=== PATIENT | male | born 1935 | race Caucasian/White ===

== ENCOUNTER 2017-01-29 15:18 | Outpatient (CLI) | payer MEDICARE, OTHER | END 2017-01-29 15:19 | disposition home or self-care (01) | DX: R10.9 Unspecified abdominal pain (principal) ==

== ENCOUNTER 2017-02-14 11:00 | Outpatient (CLI) | payer MEDICARE, OTHER | END 2017-02-14 11:01 | disposition home or self-care (01) | DX: K76.0 Fatty (change of) liver, not elsewhere classified (principal) ==

== ENCOUNTER 2017-03-19 09:31 | Outpatient (CLI) | payer MEDICARE, OTHER ==
[2017-03-19 18:13] LABS: BASOPHILS # (AUTO) 0.1 10^3/uL (0.0-0.1); BASOPHILS % (AUTO) 0.9 %; EOSINOPHILS # (AUTO) 0.3 10^3/uL (0.0-0.7); EOSINOPHILS % (AUTO) 3.9 %; HCT - HEMATOCRIT 41.5 % (42.0-52.0); LYMPHOCYTES # (AUTO) 1.3 10^3/uL (1.5-3.5); LYMPHOCYTES % (AUTO) 18.8 %; MEAN CORPUSCULAR HEMOGLOBIN 34.5 pg (27.0-31.0); MEAN CORPUSCULAR HGB CONC 33.7 g/dL (32.0-36.0); MEAN CORPUSCULAR VOLUME 102.3 fL (80.0-94.0); MEAN PLATELET VOLUME 8.9 fL (7.4-11.4); MONOCYTES # (AUTO) 0.4 10^3/uL (0.0-1.0); MONOCYTES % (AUTO) 6.5 %; NEUTROPHILS # (AUTO) 4.8 10^3/uL (1.5-6.6); NEUTROPHILS % (AUTO) 69.9 %; NUCLEATED RED BLOOD CELLS AUTO 0.1 /100WBC; RED BLOOD COUNT 4.06 10^6/uL (4.70-6.10); UNCORRECTED WHITE BLOOD COUNT 6.8 x10^3/uL; WHITE BLOOD COUNT 6.8 x10^3/uL (4.8-10.8)
[2017-03-19 18:48] LABS: ALBUMIN/GLOBULIN RATIO 1.7 (1.0-2.2); BILIRUBIN,TOTAL 0.7 mg/dL (0.2-1.0); BUN - BLOOD UREA NITROGEN 33 mg/dL (6-20); CARBON DIOXIDE - CO2 23 mmol/L (21-32); CHLORIDE 107 mmol/L (101-111); CHOL/HDL RATIO 2.8 (<5.0); CHOLESTEROL 190 mg/dL; CREATININE 1.3 mg/dL (0.6-1.2); GFR - MDRD 53 (>89); GLUCOSE 157 mg/dL (70-100); HDL CHOLESTEROL 68 mg/dL; LDL/HDL RATIO 1.6 (<3.6); POTASSIUM 4.8 mmol/L (3.5-5.0); SODIUM 137 mmol/L (135-145); TRIGLYCERIDES 69 mg/dL; VLDL CHOLESTEROL 14 mg/dL
== END 2017-03-19 09:32 | disposition home or self-care (01) ==
LOC: LAB.S 09:31
PROVIDERS: ATTEND Family Medicine
DX: E78.5 Hyperlipidemia, unspecified (principal); N18.3 Chronic kidney disease, stage 3 (moderate)
CPT/HCPCS: 36415; 80053; 80061; 85025

== ENCOUNTER 2017-05-29 14:07 | Outpatient (CLI) | payer MEDICARE, OTHER ==
[2017-05-29 18:07] LABS: ALBUMIN/GLOBULIN RATIO 1.8 (1.0-2.2); BILIRUBIN,TOTAL 0.8 mg/dL (0.2-1.0); BUN - BLOOD UREA NITROGEN 28 mg/dL (6-20); CALCIUM 9.1 mg/dL (8.5-10.3); CARBON DIOXIDE - CO2 24 mmol/L (21-32); CHLORIDE 105 mmol/L (101-111); CHOL/HDL RATIO 2.6 (<5.0); CHOLESTEROL 186 mg/dL; CREATININE 1.3 mg/dL (0.6-1.2); GFR - MDRD 53 (>89); GLUCOSE 121 mg/dL (70-100); HDL CHOLESTEROL 71 mg/dL; LDL/HDL RATIO 1.3 (<3.6); POTASSIUM 4.4 mmol/L (3.5-5.0); SODIUM 137 mmol/L (135-145); TOTAL PROTEIN 6.9 g/dL (6.7-8.2); TRIGLYCERIDES 120 mg/dL; VLDL CHOLESTEROL 24 mg/dL
[2017-05-29 18:14] LABS: HEMOGLOBIN A1C 0.74 g/dL
== END 2017-05-29 14:08 | disposition home or self-care (01) ==
LOC: LAB.F 14:07
PROVIDERS: ATTEND Family Medicine
DX: E11.9 Type 2 diabetes mellitus without complications (principal); E78.5 Hyperlipidemia, unspecified
CPT/HCPCS: 36415; 80053; 80061; 83036

== ENCOUNTER 2017-05-31 08:00 | Outpatient (CLI) | payer MEDICARE, OTHER | END 2017-05-31 08:01 | disposition home or self-care (01) | LOC: LAB.R 08:00 | PROVIDERS: ATTEND Family Medicine | DX: Z01.818 Encounter for other preprocedural examination (principal) | CPT/HCPCS: 87640 ==

== ENCOUNTER 2017-06-25 10:45 | Outpatient (CLI) | payer MEDICARE, OTHER ==
[2017-06-25 11:12] LABS: BASOPHILS # (AUTO) 0.1 10^3/uL (0.0-0.1); BASOPHILS % (AUTO) 0.8 %; EOSINOPHILS # (AUTO) 0.3 10^3/uL (0.0-0.7); EOSINOPHILS % (AUTO) 3.1 %; HCT - HEMATOCRIT 40.2 % (42.0-52.0); HGB - HEMOGLOBIN 13.7 g/dL (14.0-18.0); LYMPHOCYTES # (AUTO) 1.4 10^3/uL (1.5-3.5); LYMPHOCYTES % (AUTO) 16.9 %; MEAN CORPUSCULAR HEMOGLOBIN 34.3 pg (27.0-31.0); MEAN CORPUSCULAR HGB CONC 34.2 g/dL (32.0-36.0); MEAN CORPUSCULAR VOLUME 100.5 fL (80.0-94.0); MEAN PLATELET VOLUME 8.5 fL (7.4-11.4); MONOCYTES # (AUTO) 0.6 10^3/uL (0.0-1.0); MONOCYTES % (AUTO) 7.3 %; NEUTROPHILS % (AUTO) 71.9 %; NUCLEATED RED BLOOD CELLS AUTO 0.1 /100WBC; RED CELL DISTRIBUTION WIDTH 15.2 % (12.0-15.0); UNCORRECTED WHITE BLOOD COUNT 8.4 x10^3/uL; WHITE BLOOD COUNT 8.4 x10^3/uL (4.8-10.8)
== END 2017-06-25 10:46 | disposition home or self-care (01) ==
LOC: LAB 10:45
PROVIDERS: ATTEND Orthopaedic Surgery
DX: M17.12 Unilateral primary osteoarthritis, left knee (principal)
CPT/HCPCS: 36415; 85025

== ENCOUNTER 2017-07-17 07:54 | Inpatient (IN) | payer MEDICARE, OTHER ==
[2017-07-17] MEDS ORDERED: LACTATED RINGERS 1,000 ML IV ONE (08:24)
[2017-07-17] MEDS ORDERED: ceFAZolin 2 GM/50 ML 2 GM/50 ML BAG IV ONE (09:48)
[2017-07-17] MEDS ORDERED: SCOPOLAMINE PATCH TOP ONE (09:48)
[2017-07-17] MEDS ORDERED: CELECOXIB 100 MG CAPSULE PO ONE ×2 (09:57→09:58)
[2017-07-17] MEDS ORDERED: KETOROLAC 15 MG/ML VIAL IM ONE (11:07)
[2017-07-17] MEDS ORDERED: ROPIVACAINE 0.5% PF 20 ML AMPULE SUBQ ONE (11:07)
[2017-07-17] MEDS ORDERED: MORPHINE PF 5 MG/10 ML AMP SUBQ ONE (11:08)
[2017-07-17] MEDS ORDERED: EPINEPHrine 1 MG/ML AMP IVP ONE (11:08)
[2017-07-17] MEDS ORDERED: BUPIVACAINE 0.5% PF 30 ML VIAL SUBQ ONE ×2 (11:09→12:10)
[2017-07-17] MEDS ORDERED: MORPHINE PF 5 MG/10 ML AMP EP ONE (11:10)
[2017-07-17] MEDS ORDERED: LIDOCAINE-MPF 2% 5 ML VIAL IM ONE (11:10)
[2017-07-17] MEDS ORDERED: fentaNYL 100 MCG/2 ML VIAL IVP ONE (11:10)
[2017-07-17] MEDS ORDERED: TRANEXAMIC ACID 1,000 MG/10 ML VIAL IV ONE (11:10)
[2017-07-17] MEDS ORDERED: METOCLOPRAMIDE 10 MG/2 ML VIAL IVP ONE (11:10)
[2017-07-17] MEDS ORDERED: PROPOFOL 200 MG/20 ML VIAL IVP ONE (11:10)
[2017-07-17] MEDS ORDERED: ONDANSETRON 4 MG/2 ML VIAL IVP ONE (11:10)
[2017-07-17] MEDS ORDERED: DEXAMETHASONE 4 MG/ML VIAL IVP ONE (11:10)
[2017-07-17] MEDS ORDERED: KETOROLAC 30 MG/ML VIAL IVP ONE (11:10)
[2017-07-17] MEDS ORDERED: ceFAZolin 2 GM/50 ML BAG IV ONE (11:10)
[2017-07-17] MEDS ORDERED: ACETAMINOPHEN 1,000 MG/100 ML 100 ML IV ONE (11:10)
--- NOTE | 2017-07-17 12:23 | OPERATIVE REPORT ---
Operative Report - General Admit Date: 07/17/17 Procedure Date: 07/17/17 Planned Procedure: Left TKA Pre-Op Diagnosis: Left Knee DJD Procedure Performed: Left Total knee arthroplasty Post Op Diagnosis: same - Procedure Note Primary Surgeon: zuleyma Anesthesia Technique: Combo spinal/epidural, General LMA Estimated Blood Loss (mL): 30 Drain/Tube Type: Hemovac Complications: none
[2017-07-17] MEDS ORDERED: PROCHLORPERAZINE 10 MG/2 ML VIAL IVP PRN (12:24)
[2017-07-17] MEDS ORDERED: ONDANSETRON 4 MG/2 ML VIAL IVP PRN (12:24)
[2017-07-17] MEDS ORDERED: SENNA 8.6 MG TABLET PO PRN (12:24)
[2017-07-17] MEDS ORDERED: SODIUM CHLORIDE FLUSH 0.9% 10 ML SYRINGE IVP PRN (12:24)
[2017-07-17] MEDS ORDERED: BISACODYL 10 MG SUPP PR PRN (12:24)
[2017-07-17] MEDS ORDERED: ACETAMINOPHEN 1,000 MG/100 ML 100 ML IV PRN (12:24)
[2017-07-17] MEDS: SODIUM CHLORIDE 0.45% 1,000 ML IV SCH (14:13)
[2017-07-17] MEDS: SODIUM CHLORIDE FLUSH 0.9% 10 ML SYRINGE IVP SCH ×2 (14:14→22:53)
[2017-07-17] MEDS ORDERED: FLU VACCINE TS 2017-2018 45 MCG/0.5 ML SYRINGE IM ONE (14:17)
--- NOTE | 2017-07-17 16:35 | OPERATIVE REPORT ---
DATE OF SURGERY: 07/17/2017 00:00:00 PREOPERATIVE DIAGNOSIS: Left knee severe osteoarthritis. POSTOPERATIVE DIAGNOSIS: Left knee severe osteoarthritis. PROCEDURE: Left total knee replacement arthroplasty. OPERATING SURGEON: Edilma Miller MD. ANESTHESIA: Spinal and sedation. INDICATIONS FOR SURGERY: The patient is an 81-year-old male with progressive severe osteoarthritis of his left knee who has failed nonoperative management and now desires total knee arthroplasty. FINDINGS AT SURGERY: The patient's knee showed a large effusion. The patient was found to have bone o n bone articulation beneath his patella and in his medial compartment with hypertrophic spurs. The pa tient's menisci remained intact. DESCRIPTION OF OPERATIVE PROCEDURE: The patient was taken to the operating room. He was given a spina l anesthetic and then placed in the supine position, with careful padding. The tourniquet was placed on his thigh. His knee and leg were sterilely prepped and draped in standard fashion. His knee was ap proached under tourniquet control with a curved medial incision in the parapatellar incision. His pat cherie was able to be everted and dislocated laterally and his knee flexed exposing intraarticular subs tance of the knee and allowing resection of osteophytes and resection of the ACL. A distal femoral ho le was made for insertion of the medullary guide for application of the distal femoral cutting block. This was applied in standard fashion and the cut made. The patient's femur sized to a size 9 and the distal 4 in 1 cutting block was applied and the sequential cuts made on the femur. The patient's tib ia was then exposed with retractors and the residual meniscus was removed, and the cutting block was applied and the proximal cut made. This sized to a size G tibial tray, which was applied, drilled and broached for stem and then trial reduction performed. Ultimately, a 13 mm medial congruent poly was the most satisfactory for stability and range of motion. The patella was prepared by resecting approx imately 9 mm of the patella, cutting down from 25 to 16 for reinsertion of a size 32 patellar compone nt. This was drilled for, prepared. Trial reduction was done of all components, which were accepted. The component trials were removed. The knee was flushed and thoroughly irrigated. Cement was prepared . The Persona knee was then inserted with cement starting with the size D tibial tray, followed by ce menting the 9 standard femur and the 32 diameter patella and finally inserting a trial poly of 13 mm size while the cement hardened and removing the excess cement. When this was accomplished and the may ent had hardened, the insert was placed, a 13 mm medial congruity poly. The knee was flushed, irrigat ed and closed with FiberWire and the medial retinaculum over a Hemovac drain. Vicryl closure in layer s of the subcutaneous tissue and Monocryl closure of skin. Sterile dressings were applied. The patien t was taken to the recovery room in stable condition. ESTIMATED BLOOD LOSS: 35 mL. COMPLICATIONS: None. SPONGE AND NEEDLE COUNTS: Correct. JOB #: [id number] EXT JOB #:[id number]
[2017-07-17] MEDS: ACETAMINOPHEN 325 MG TABLET PO PRN (17:02)
[2017-07-17] MEDS: ASPIRIN 325 MG TABLET PO SCH (17:02)
--- NOTE | 2017-07-17 17:11 | XRAY Report ---
TWO VIEW LEFT KNEE: 07/17/2017 CLINICAL INDICATION: Postop knee replacement. Frontal and lateral views of the left knee demonstrate internal knee replacement in place. A suprapa tellar drain is noted in place. Subcutaneous gas is present. IMPRESSION: EXPECTED POSTOPERATIVE APPEARANCE OF LEFT KNEE REPLACEMENT. JOB #: [id number] EXT JOB #:[id number]
[2017-07-17] MEDS: ceFAZolin 2 GM/50 ML 2 GM/50 ML BAG IV SCH (17:34)
[2017-07-17] MEDS: FAMOTIDINE 20 MG TABLET PO SCH (22:17)
[2017-07-17] MEDS: metFORMIN 500 MG TABLET PO SCH (22:18)
[2017-07-17] MEDS ORDERED: INSULIN ASPART 300 UNIT/3 ML PEN SUBQ SCH (22:41)
[2017-07-18] MEDS: SODIUM CHLORIDE 0.45% 1,000 ML IV SCH ×3 (00:42→21:26)
[2017-07-18] MEDS: oxyCOD/ACETAMIN 5 MG/325 MG TABLET PO PRN (00:57)
[2017-07-18 01:27] LABS: HEMOGLOBIN A1C 0.62 g/dL
[2017-07-18] MEDS: ceFAZolin 2 GM/50 ML 2 GM/50 ML BAG IV SCH (01:43)
[2017-07-18 05:10] LABS: HCT - HEMATOCRIT 32.7 % (42.0-52.0); HGB - HEMOGLOBIN 11.2 g/dL (14.0-18.0)
[2017-07-18 05:18] LABS: CREATININE 1.8 mg/dL (0.6-1.2); POTASSIUM 4.3 mmol/L (3.5-5.0)
[2017-07-18] MEDS: SODIUM CHLORIDE FLUSH 0.9% 10 ML SYRINGE IVP SCH ×3 (05:43→20:06)
--- NOTE | 2017-07-18 07:14 | PROVIDER PROGRESS NOTE ---
Subjective - General Admit Date: 07/17/17 Procedure Date: 07/17/17 Post Op Days: 1 Procedure Performed: Left Total Knee Arthroplasty - Review of Systems Wound/Incisions: positive: Dressing dry and intact General: positive: No symptoms Cardiovascular: positive: No symptoms Musculoskeletal: positive: Joint pain Objective - Patient Data Reviewed Vital Signs: Yes Vital Signs: Vital Signs x48h Temp Pulse Resp BP Pulse Ox 07/18/17 04:35 36.6 C 58 L 18 117/61 93 07/17/17 23:51 36.5 C 60 18 130/72 96 Weight: Weight 07/16/17 07/17/17 07/18/17 23:59 23:59 23:59 Weight (kg) 100.4 kg Intake & Output: Intake and Output Totals x24h 07/16/17 07/17/17 07/18/17 23:59 23:59 23:59 Intake Total 558 1100 Output Total 500 240 Balance 58 860 - Lab Results Lab Results: 07/18/17 04:28 07/18/17 04:28 Other Lab Results: Lab Results x24hrs 07/18/17 07/18/17 07/18/17 Range/Units 04:28 04:28 04:28 Hgb 11.2 L (14.0-18.0) g/dL Hct 32.7 L (42.0-52.0) % Sodium 133 L (135-145) mmol/L Potassium 4.3 (3.5-5.0) mmol/L Chloride 105 (101-111) mmol/L Carbon Dioxide 20 L (21-32) mmol/L Anion Gap 8.0 (6-13) BUN 36 H (6-20) mg/dL Creatinine 1.8 H (0.6-1.2) mg/dL Estimated GFR (MDRD) 36 L (>89) Glucose 120 H (70-100) mg/dL POC Whole Bld Glucose 121 H (70 - 100) mg/dL Glycated Hemoglobin (4.6-6.2) % Estim Average Glucose (70-100) Calcium 8.0 L (8.5-10.3) mg/dL 07/18/17 07/17/17 07/17/17 Range/Units 00:18 22:49 22:28 Hgb (14.0-18.0) g/dL Hct (42.0-52.0) % Sodium (135-145) mmol/L Potassium (3.5-5.0) mmol/L Chloride (101-111) mmol/L Carbon Dioxide (21-32) mmol/L Anion Gap (6-13) BUN (6-20) mg/dL Creatinine (0.6-1.2) mg/dL Estimated GFR (MDRD) (>89) Glucose (70-100) mg/dL POC Whole Bld Glucose 311 H 370 H (70 - 100) mg/dL Glycated Hemoglobin 6.7 H (4.6-6.2) % Estim Average Glucose 146 H (70-100) Calcium (8.5-10.3) mg/dL 07/17/17 07/17/17 Range/Units 12:28 08:23 Hgb (14.0-18.0) g/dL Hct (42.0-52.0) % Sodium (135-145) mmol/L Potassium (3.5-5.0) mmol/L Chloride (101-111) mmol/L Carbon Dioxide (21-32) mmol/L Anion Gap (6-13) BUN (6-20) mg/dL Creatinine (0.6-1.2) mg/dL Estimated GFR (MDRD) (>89) Glucose (70-100) mg/dL POC Whole Bld Glucose 190 H 212 H (70 - 100) mg/dL Glycated Hemoglobin (4.6-6.2) % Estim Average Glucose (70-100) Calcium (8.5-10.3) mg/dL - Imaging Results Radiology Imaging: positive: EMP read indepedently - Current Medications Current Medications: Current Medications Generic Name Dose Route Start Last Admin Trade Name Freq PRN Reason Stop Dose Admin Acetaminophen 650 - 975 mg 07/17/17 12:24 07/17/17 17:02 Tylenol PO 650 mg Q4HR PRN Administration PAIN Aspirin 325 mg 07/17/17 17:00 07/17/17 17:02 Cameron PO 325 mg BIDWM VINCE Administration Famotidine 20 mg 07/17/17 21:00 07/17/17 22:17 Pepcid PO 20 mg BID VINCE Administration Sodium Chloride 1,000 mls @ 100 mls/hr 07/17/17 13:00 07/18/17 00:42 Normal Saline 0.45% IV 100 mls/hr .Q10H VINCE Administration Metformin HCl 500 mg 07/17/17 21:00 07/17/17 22:18 Glucophage PO 500 mg BID VINCE Administration Oxycodone/Acetaminophen 1 tab 07/17/17 12:24 07/18/17 00:57 Percocet 5 Mg/325 Mg PO 1 tab Q4HR PRN Administration PAIN Sodium Chloride 10 ml 07/17/17 14:00 07/18/17 05:43 Normal Saline Flush 0.9% IVP Not Given Q8HR VINCE - Physical Exam Wound/Incisions: positive: Dressing dry and intact General Appearance: positive: No acute distress Skin: positive: No rash Extremities: positive: Joint swelling Neurologic/Psychiatric: positive: Motor nml, Sensation nml, Mood/affect nml Impression/Plan - Problem List Problem List: POD #1 Pt is doing better and pain is under good control PT has begun today. PLan to cont. with care and gear up for d/c to home Will need better diabetic care.
[2017-07-18] MEDS: ASPIRIN 325 MG TABLET PO SCH ×2 (09:00→17:09)
[2017-07-18] MEDS: INSULIN ASPART 300 UNIT/3 ML PEN SUBQ SCH ×4 (09:00→20:09)
[2017-07-18] MEDS: LOSARTAN 50 MG TABLET PO SCH (09:00)
[2017-07-18] MEDS: amLODIPine 5 MG TABLET PO SCH (09:00)
[2017-07-18] MEDS: ALLOPURINOL 100 MG TABLET PO SCH (09:00)
[2017-07-18] MEDS: FAMOTIDINE 20 MG TABLET PO SCH ×2 (09:01→20:06)
[2017-07-18] MEDS: METOPROLOL SUCCINATE 50 MG TABLET PO SCH (09:01)
[2017-07-18] MEDS: metFORMIN 500 MG TABLET PO SCH ×2 (10:10→20:33)
[2017-07-18] MEDS: ACETAMINOPHEN 325 MG TABLET PO PRN ×3 (10:40→20:06)
[2017-07-18] MEDS ORDERED: metFORMIN 500 MG TABLET ONE (20:27)
[2017-07-19] MEDS: ACETAMINOPHEN 325 MG TABLET PO PRN (04:10)
[2017-07-19] MEDS: SODIUM CHLORIDE FLUSH 0.9% 10 ML SYRINGE IVP SCH ×3 (06:25→20:51)
--- NOTE | 2017-07-19 07:21 | PROVIDER PROGRESS NOTE ---
Subjective - General Admit Date: 07/17/17 Procedure Date: 07/17/17 Post Op Days: 2 Procedure Performed: Left Total Knee Arthroplasty - Review of Systems Wound/Incisions: positive: Dressing dry and intact General: positive: No symptoms Cardiovascular: positive: No symptoms Musculoskeletal: positive: Joint pain Objective - Patient Data Reviewed Vital Signs: Yes Vital Signs: Vital Signs x48h Temp Pulse Resp BP Pulse Ox 07/19/17 04:01 36.9 C 66 18 150/62 H 96 07/19/17 00:05 36.3 C L 66 18 133/65 H 98 Weight: Weight 07/17/17 07/18/17 07/19/17 23:59 23:59 23:59 Weight (kg) 100.4 kg Intake & Output: Intake and Output Totals x24h 07/17/17 07/18/17 07/19/17 23:59 23:59 23:59 Intake Total 558 4450 1073.333 Output Total 500 530 300 Balance 58 3920 773.333 - Lab Results Lab Results: 07/18/17 04:28 07/18/17 04:28 Other Lab Results: Lab Results x24hrs 07/18/17 07/18/17 07/18/17 Range/Units 19:56 16:25 11:15 POC Whole Bld Glucose 197 H 114 H 216 H (70 - 100) mg/dL 07/18/17 Range/Units 07:31 POC Whole Bld Glucose 128 H (70 - 100) mg/dL - Current Medications Current Medications: Current Medications Generic Name Dose Route Start Last Admin Trade Name Freq PRN Reason Stop Dose Admin Acetaminophen 650 - 975 mg 07/17/17 12:24 07/19/17 04:10 Tylenol PO 650 mg Q4HR PRN Administration PAIN Allopurinol 300 mg 07/18/17 09:00 07/18/17 09:00 Zyloprim PO 300 mg DAILY VINCE Administration Amlodipine Besylate 10 mg 07/18/17 09:00 07/18/17 09:00 Norvasc PO 10 mg DAILY VINCE Administration Aspirin 325 mg 07/17/17 17:00 07/18/17 17:09 Cameron PO 325 mg BIDWM VINCE Administration Famotidine 20 mg 07/17/17 21:00 07/18/17 20:06 Pepcid PO 20 mg BID VINCE Administration Sodium Chloride 1,000 mls @ 100 mls/hr 07/17/17 13:00 07/19/17 07:10 Normal Saline 0.45% IV 100 mls/hr .Q10H VINCE Infusion Insulin Aspart 3 - 11 unit 07/18/17 08:00 07/18/17 20:09 Novolog SUBQ 5 unit 0800,1200,1700,2100 VINCE Administration Protocol Losartan Potassium 100 mg 07/18/17 09:00 07/18/17 09:00 Cozaar PO 100 mg DAILY VINCE Administration Metformin HCl 500 mg 07/17/17 21:00 07/18/17 20:33 Glucophage PO 500 mg BID VINCE Administration Metoprolol Succinate 50 mg 07/18/17 09:00 07/18/17 09:01 Toprol Xl PO 50 mg DAILY VINCE Administration Oxycodone/Acetaminophen 1 tab 07/17/17 12:24 07/18/17 00:57 Percocet 5 Mg/325 Mg PO 1 tab Q4HR PRN Administration PAIN Sodium Chloride 10 ml 07/17/17 14:00 07/19/17 06:25 Normal Saline Flush 0.9% IVP 10 ml Q8HR VINCE Administration
[2017-07-19] MEDS: SODIUM CHLORIDE 0.45% 1,000 ML IV SCH ×2 (08:12→16:46)
[2017-07-19] MEDS: INSULIN ASPART 300 UNIT/3 ML PEN SUBQ SCH ×4 (09:50→20:50)
[2017-07-19] MEDS: amLODIPine 5 MG TABLET PO SCH (09:54)
[2017-07-19] MEDS: oxyCOD/ACETAMIN 5 MG/325 MG TABLET PO PRN ×2 (09:54→14:47)
[2017-07-19] MEDS: LOSARTAN 50 MG TABLET PO SCH (09:54)
[2017-07-19] MEDS: FAMOTIDINE 20 MG TABLET PO SCH ×2 (09:54→20:49)
[2017-07-19] MEDS: METOPROLOL SUCCINATE 50 MG TABLET PO SCH (09:54)
[2017-07-19] MEDS: ALLOPURINOL 100 MG TABLET PO SCH (09:54)
[2017-07-19] MEDS: ASPIRIN 325 MG TABLET PO SCH ×2 (09:55→18:14)
[2017-07-19] MEDS: metFORMIN 500 MG TABLET PO SCH ×2 (10:54→20:50)
[2017-07-20 05:34] LABS: BASOPHILS % (AUTO) 0.4 %; EOSINOPHILS # (AUTO) 0.2 10^3/uL (0.0-0.7); HCT - HEMATOCRIT 31.7 % (42.0-52.0); HGB - HEMOGLOBIN 10.9 g/dL (14.0-18.0); LYMPHOCYTES # (AUTO) 0.8 10^3/uL (1.5-3.5); LYMPHOCYTES % (AUTO) 8.6 %; MEAN CORPUSCULAR HEMOGLOBIN 35.1 pg (27.0-31.0); MEAN CORPUSCULAR HGB CONC 34.4 g/dL (32.0-36.0); MEAN CORPUSCULAR VOLUME 102.1 fL (80.0-94.0); MEAN PLATELET VOLUME 9.1 fL (7.4-11.4); MONOCYTES # (AUTO) 0.8 10^3/uL (0.0-1.0); MONOCYTES % (AUTO) 8.3 %; NEUTROPHILS # (AUTO) 7.8 10^3/uL (1.5-6.6); NEUTROPHILS % (AUTO) 80.7 %; RED BLOOD COUNT 3.11 10^6/uL (4.70-6.10); RED CELL DISTRIBUTION WIDTH 15.2 % (12.0-15.0); UNCORRECTED WHITE BLOOD COUNT 9.7 x10^3/uL; WHITE BLOOD COUNT 9.7 x10^3/uL (4.8-10.8)
[2017-07-20 05:43] LABS: ALBUMIN/GLOBULIN RATIO 1.3 (1.0-2.2); BILIRUBIN,TOTAL 0.9 mg/dL (0.2-1.0); BUN - BLOOD UREA NITROGEN 25 mg/dL (6-20); CALCIUM 8.5 mg/dL (8.5-10.3); CARBON DIOXIDE - CO2 22 mmol/L (21-32); CHLORIDE 103 mmol/L (101-111); CREATININE 1.4 mg/dL (0.6-1.2); GFR - MDRD 48 (>89); GLUCOSE 161 mg/dL (70-100); POTASSIUM 4.3 mmol/L (3.5-5.0); SODIUM 134 mmol/L (135-145); TOTAL PROTEIN 6.2 g/dL (6.7-8.2)
[2017-07-20] MEDS: SODIUM CHLORIDE 0.45% 1,000 ML IV SCH ×2 (06:03→12:04)
[2017-07-20] MEDS: SODIUM CHLORIDE FLUSH 0.9% 10 ML SYRINGE IVP SCH (06:03)
[2017-07-20] MEDS: INSULIN ASPART 300 UNIT/3 ML PEN SUBQ SCH ×2 (08:00→11:37)
[2017-07-20] MEDS: LOSARTAN 50 MG TABLET PO SCH (08:12)
[2017-07-20] MEDS: FAMOTIDINE 20 MG TABLET PO SCH (08:12)
[2017-07-20] MEDS: amLODIPine 5 MG TABLET PO SCH (08:12)
[2017-07-20] MEDS: METOPROLOL SUCCINATE 50 MG TABLET PO SCH (08:13)
[2017-07-20] MEDS: ALLOPURINOL 100 MG TABLET PO SCH (08:13)
[2017-07-20] MEDS: metFORMIN 500 MG TABLET PO SCH (08:14)
[2017-07-20] MEDS: ASPIRIN 325 MG TABLET PO SCH (08:14)
[2017-07-20] MEDS: ACETAMINOPHEN 325 MG TABLET PO PRN (08:15)
[2017-07-20] MEDS: oxyCOD/ACETAMIN 5 MG/325 MG TABLET PO PRN ×2 (10:09→13:17)
--- NOTE | 2017-07-20 10:37 | Discharge Plan ---
Discharge Plan Disposition: 01 Home, Self Care Condition: Good Prescriptions: oxyCODONE/ACET 5/325 [Percocet 5 mg/325 mg] 1 tab PO Q4HR PRN #30 tablet PRN Reason: Pain Aspirin [Cameron] 325 mg PO BIDWM #60 tablet Senna [Senokot] 17.2 mg PO Q12H PRN #30 tablet PRN Reason: Constipation Diet: Diabetic Activity Restrictions: Wt Bearing as Tolerated Shower Restrictions: Yes (COVER KNEE FOR SHOWER) Driving Restrictions: Yes (NO DRIVING) Assistance Devices: Walker Weight Bearing: Full Weight Follow-Up Care: Outpatient Rehab - PT No Smoking: If you smoke, Please STOP! Call for help. Follow-up with: Mario Garcia MD [Primary Care Provider] - Edilma Miller MD [Provider Admit Priv/Credential] -
[2017-07-20 12:21] VITALS: BP 126/70
== END 2017-07-20 14:00 | disposition home or self-care (01) | DRG 470 ==
LOC: ICU 07:54 → MS2 18:54
PROVIDERS: ADMIT Orthopaedic Surgery; ATTEND Orthopaedic Surgery
PROC: 0SRD0J9 Replacement of Left Knee Joint with Synthetic Substitute, Cemented, Open Approach (ICD-10-PCS; principal; 2017-07-17 09:00)
DX: M17.12 Unilateral primary osteoarthritis, left knee (principal); E11.22 Type 2 diabetes mellitus with diabetic chronic kidney disease; I12.9 Hypertensive chronic kidney disease with stage 1 through stage 4 chronic kidney disease, or unspecified chronic kidney disease; N18.3 Chronic kidney disease, stage 3 (moderate); E78.5 Hyperlipidemia, unspecified; M10.9 Gout, unspecified; E66.9 Obesity, unspecified; Z68.33 Body mass index [BMI] 33.0-33.9, adult; K21.9 Gastro-esophageal reflux disease without esophagitis; Z87.891 Personal history of nicotine dependence; Z79.82 Long term (current) use of aspirin; Z79.84 Long term (current) use of oral hypoglycemic drugs; Z79.899 Other long term (current) drug therapy
CPT/HCPCS: 36415; 80048; 80053; 83036; 85014; 85018; 85025; 87150

== ENCOUNTER 2017-11-19 08:00 | Outpatient (CLI) | payer MEDICARE, OTHER ==
[2017-11-19 18:39] LABS: CREATININE 1.3 mg/dL (0.6-1.2)
[2017-11-19 19:35] LABS: HB2 TOTAL 14.7 g/dL; HEMOGLOBIN A1C 0.76 g/dL; HEMOGLOBIN A1C % 6.9 % (4.6-6.2)
== END 2017-11-19 08:01 ==
LOC: LAB.S 08:00
PROVIDERS: ATTEND Family Medicine
DX: E11.9 Type 2 diabetes mellitus without complications (principal); I12.9 Hypertensive chronic kidney disease with stage 1 through stage 4 chronic kidney disease, or unspecified chronic kidney disease; N18.3 Chronic kidney disease, stage 3 (moderate)
CPT/HCPCS: 36415; 80048; 83036

== ENCOUNTER 2018-04-01 09:37 | Outpatient (CLI) | payer MEDICARE, OTHER ==
[2018-04-01 18:07] LABS: BASOPHILS # (AUTO) 0.1 10^3/uL (0.0-0.1); BASOPHILS % (AUTO) 0.9 %; EOSINOPHILS # (AUTO) 0.3 10^3/uL (0.0-0.7); EOSINOPHILS % (AUTO) 4.4 %; HGB - HEMOGLOBIN 13.4 g/dL (14.0-18.0); LYMPHOCYTES # (AUTO) 1.3 10^3/uL (1.5-3.5); LYMPHOCYTES % (AUTO) 19.5 %; MEAN CORPUSCULAR HEMOGLOBIN 35.1 pg (27.0-31.0); MEAN CORPUSCULAR HGB CONC 33.3 g/dL (32.0-36.0); MEAN CORPUSCULAR VOLUME 105.4 fL (80.0-94.0); MEAN PLATELET VOLUME 8.4 fL (7.4-11.4); MONOCYTES # (AUTO) 0.5 10^3/uL (0.0-1.0); MONOCYTES % (AUTO) 7.2 %; NEUTROPHILS # (AUTO) 4.6 10^3/uL (1.5-6.6); PLT - PLATELET COUNT 123 10^3/uL (130-450); RED BLOOD COUNT 3.81 10^6/uL (4.70-6.10); RED CELL DISTRIBUTION WIDTH 15.2 % (12.0-15.0); WHITE BLOOD COUNT 6.7 x10^3/uL (4.8-10.8)
[2018-04-01 18:22] LABS: ALBUMIN 4.3 g/dL (3.2-5.5); BILIRUBIN,TOTAL 0.9 mg/dL (0.2-1.0); CALCIUM 9.5 mg/dL (8.5-10.3); CREATININE 1.5 mg/dL (0.6-1.2); TOTAL PROTEIN 6.4 g/dL (6.7-8.2)
[2018-04-01 18:52] LABS: HB2 TOTAL 14.6 g/dL; HEMOGLOBIN A1C 0.7 g/dL; HEMOGLOBIN A1C % 6.5 % (4.6-6.2)
== END 2018-04-01 09:38 ==
LOC: LAB.S 09:37
PROVIDERS: ATTEND Family Medicine
DX: E11.22 Type 2 diabetes mellitus with diabetic chronic kidney disease (principal); I12.9 Hypertensive chronic kidney disease with stage 1 through stage 4 chronic kidney disease, or unspecified chronic kidney disease; N18.3 Chronic kidney disease, stage 3 (moderate)
CPT/HCPCS: 36415; 80053; 83036; 85025

== ENCOUNTER 2018-06-04 12:10 | Observation (INO) | payer MEDICARE, OTHER ==
[2018-06-04 12:52] LABS: BASOPHILS # (AUTO) 0.1 10^3/uL (0.0-0.1); BASOPHILS % (AUTO) 0.8 %; EOSINOPHILS # (AUTO) 0.2 10^3/uL (0.0-0.7); EOSINOPHILS % (AUTO) 2.9 %; HGB - HEMOGLOBIN 12.7 g/dL (14.0-18.0); LYMPHOCYTES # (AUTO) 1.2 10^3/uL (1.5-3.5); LYMPHOCYTES % (AUTO) 16.8 %; MEAN CORPUSCULAR HGB CONC 34.8 g/dL (32.0-36.0); MEAN CORPUSCULAR VOLUME 100.5 fL (80.0-94.0); MEAN PLATELET VOLUME 8.1 fL (7.4-11.4); MONOCYTES # (AUTO) 0.6 10^3/uL (0.0-1.0); MONOCYTES % (AUTO) 8.6 %; NEUTROPHILS # (AUTO) 4.8 10^3/uL (1.5-6.6); NEUTROPHILS % (AUTO) 70.9 %; PLT - PLATELET COUNT 123 10^3/uL (130-450); RED BLOOD COUNT 3.63 10^6/uL (4.70-6.10); RED CELL DISTRIBUTION WIDTH 15.5 % (12.0-15.0); WHITE BLOOD COUNT 6.8 x10^3/uL (4.8-10.8)
[2018-06-04 13:08] LABS: ALBUMIN/GLOBULIN RATIO 1.5 (1.0-2.2); CALCIUM 9.1 mg/dL (8.5-10.3); CREATININE 1.4 mg/dL (0.6-1.2); TOTAL PROTEIN 6.6 g/dL (6.7-8.2)
--- NOTE | 2018-06-04 13:08 | XRAY Report ---
Procedure Date: 06/04/2018 Accession Number: [id number] / [id number] Procedure: XR - Chest 1 View X-Ray CPT Code: 74397 FULL RESULT: EXAM: CHEST RADIOGRAPHY EXAM DATE: 06/04/2018 12:56 PM. CLINICAL HISTORY: Chest pain. COMPARISON: 11/08/2012. TECHNIQUE: 1 view. FINDINGS: Lungs/Pleura: Stable mild smooth pleural thickening lateral inferior right chest wall. No new focal opacities evident. No pleural effusion. No pneumothorax. Mediastinum: Within exam limitations, the cardiomediastinal contour is normal. Other: None. IMPRESSION: Stable, unremarkable exam. RADIA
--- NOTE | 2018-06-04 13:45 | ED Physician Documentation ---
PD HPI CHEST PAIN - Stated complaint Stated Complaint: BLURRY VISION/TIGHTNESS IN CHEST - Chief complaint Chief Complaint: Resp - History obtained from History obtained from: Patient, Family - History of Present Illness Timing - onset: Today Timing - duration: Minutes (30) Timing - details: Abrupt onset Pain level max: 6 Pain level now: 0 Quality: Pressure, Tightness Location: Left chest - Additional information Additional information: Patient is an 82-year-old male who states that he had approximately 15 minutes of blurry vision bilaterally today while eating breakfast. This is since resolved. After that he went outside to help his trim the jose bushes when he developed left-sided chest pain, described as a squeezing. Lasted 15- 20 minutes. This has since resolved as well. He currently feels normal. The chest pain was of approximately 10 to 10:30 in the morning. States that he had a normal cardiac stress test last year. He did take aspirin prior to arrival. Nothing made the pain better or worse. It was nonradiating. Review of Systems Ten Systems: 10 systems reviewed and negative Constitutional: denies: Fever, Chills Ears: denies: Ear pain Nose: denies: Rhinorrhea / runny nose, Congestion Throat: denies: Sore throat Cardiac: denies: Palpitations Respiratory: denies: Dyspnea, Cough GI: denies: Abdominal Pain, Nausea, Vomiting, Diarrhea Skin: denies: Rash Musculoskeletal: denies: Neck pain, Back pain Neurologic: denies: Headache PD PAST MEDICAL HISTORY - Past Medical History Cardiovascular: Hypertension, High cholesterol Respiratory: None Endocrine/Autoimmune: Type 2 diabetes GI: GERD : Other Psych: None Musculoskeletal: Osteoarthritis Derm: None - Past Surgical History Past Surgical History: Yes General: Appendectomy Ortho: Hip replacement HEENT: Cataracts - Present Medications Home Medications: Ambulatory Orders Medication Instructions Recorded Confirmed Allopurinol 300 mg PO DAILY 06/25/17 06/04/18 Felodipine [Felodipine ER] 10 mg PO DAILY 06/25/17 06/04/18 Losartan Potassium 100 mg PO DAILY 06/25/17 06/04/18 Metoprolol Succinate 50 mg PO DAILY 06/25/17 06/04/18 metFORMIN [Glucophage] 500 mg PO BID 06/25/17 06/04/18 raNITIdine [Zantac] 150 mg PO BID 06/25/17 06/04/18 Acetaminophen 1,000 mg PO BID 06/04/18 06/04/18 Aspirin [Cameron] 325 mg PO BID 06/04/18 06/04/18 - Allergies Allergies/Adverse Reactions: Allergies Allergy/AdvReac Type Severity Reaction Status Date / Time No Known Drug Allergies Allergy Verified 06/25/17 11:20 - Social History Does the pt smoke?: No Smoking Status: Never smoker Does the pt drink ETOH?: Yes Does the pt have substance abuse?: No - Immunizations Immunizations are current?: Yes PD ED PE NORMAL - Vitals Vital signs reviewed: Yes - General General: Alert and oriented X 3, No acute distress - HEENT HEENT: Atraumatic, PERRL, EOMI, Moist mucous membranes - Neck Neck: Supple, no meningeal sign - Cardiac Cardiac: RRR, Strong equal pulses - Respiratory Respiratory: No respiratory distress, Clear bilaterally - Abdomen Abdomen: Soft, Non tender, Non distended - Back Back: No spinal TTP - Derm Derm: Warm and dry - Neuro Neuro: Alert and oriented X 3, 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, No motor deficit, No sensory deficit Eye Opening: Spontaneous Motor: Obeys Commands Verbal: Oriented GCS Score: 15 - Psych Psych: Normal mood, Normal affect Results - Vitals Vitals: Vital Signs - 24 hr 06/04/18 06/04/18 06/04/18 12:23 12:29 13:00 Temperature 36.2 C L Heart Rate 80 78 77 Respiratory 13 15 Rate Blood Pressure 136/77 H 122/75 133/66 H O2 Saturation 96 97 98 06/04/18 14:00 Temperature Heart Rate 75 Respiratory 21 Rate Blood Pressure 126/73 O2 Saturation 95 Oxygen O2 Source Room air - EKG (time done) 1230 Rate: Rate (enter#) (79) Rhythm: NSR [place]: Anterior hemiblock (LAFB) Intervals: Normal CA QRS: Normal Ischemia: Normal ST segments - Labs Labs: Laboratory Tests 06/04/18 06/04/18 06/04/18 12:40 12:40 12:40 WBC 6.8 RBC 3.63 L Hgb 12.7 L Hct 36.5 L MCV 100.5 H MCH 35.0 H MCHC 34.8 RDW 15.5 H Plt Count 123 L MPV 8.1 Neut # (Auto) 4.8 Lymph # (Auto) 1.2 L Fleming # (Auto) 0.6 Eos # (Auto) 0.2 Baso # (Auto) 0.1 Absolute Nucleated RBC 0.00 Nucleated RBC % 0.0 Sodium 138 Potassium 4.0 Chloride 108 Carbon Dioxide 21 Anion Gap 9.0 BUN 35 H Creatinine 1.4 H Estimated GFR (MDRD) 48 L Glucose 174 H Glycated Hemoglobin Estim Average Glucose Calcium 9.1 Total Bilirubin 1.0 AST 20 ALT 19 Alkaline Phosphatase 62 Troponin I < 0.04 Total Protein 6.6 L Albumin 4.0 Globulin 2.6 Albumin/Globulin Ratio 1.5 Lipase 38 06/04/18 12:40 WBC RBC Hgb Hct MCV MCH MCHC RDW Plt Count MPV Neut # (Auto) Lymph # (Auto) Fleming # (Auto) Eos # (Auto) Baso # (Auto) Absolute Nucleated RBC Nucleated RBC % Sodium Potassium Chloride Carbon Dioxide Anion Gap BUN Creatinine Estimated GFR (MDRD) Glucose Glycated Hemoglobin 6.3 H Estim Average Glucose 134 H Calcium Total Bilirubin AST ALT Alkaline Phosphatase Troponin I Total Protein Albumin Globulin Albumin/Globulin Ratio Lipase - Rads (name of study) cxr Radiology: Prelim report reviewed, EMP read contemporaneously, See rad report ( no acute disease) PD MEDICAL DECISION MAKING - ED course Complexity details: reviewed results, re-evaluated patient, considered differential (No ST elevation OK, no aortic dissection, no PE, no tension pneumothorax, no aortic aneurysm), d/w patient, d/w family, d/w systems management consultant ED course: Patient is an 82-year-old male who presents to the emergency department with chest pain today. Concerning for potential acute coronary syndrome. No acute findings on EKG and initial troponin is negative. He did take aspirin prior to arrival. We will have him placed in observation for rule out OK. No further symptoms in the emergency department. Discussed case with Dr. Barrera who accepts - Sepsis Event Vital Signs: Vital Signs - 24 hr 06/04/18 06/04/18 06/04/18 12:23 12:29 13:00 Temperature 36.2 C L Heart Rate 80 78 77 Respiratory 13 15 Rate Blood Pressure 136/77 H 122/75 133/66 H O2 Saturation 96 97 98 06/04/18 14:00 Temperature Heart Rate 75 Respiratory 21 Rate Blood Pressure 126/73 O2 Saturation 95 Oxygen O2 Source Room air Departure - Departure Disposition: ED Place in Observation Clinical Impression: Chest pain Qualifiers: Chest pain type: unspecified Qualified Code(s): R07.9 - Chest pain, unspecified Condition: Stable Discharge Date/Time: 06/04/18 15:58
[2018-06-04] MEDS ORDERED: ACETAMINOPHEN 325 MG TABLET PO PRN (14:30)
[2018-06-04] MEDS ORDERED: ZOLPIDEM 5 MG TABLET PO PRN (14:30)
[2018-06-04] MEDS ORDERED: ONDANSETRON 4 MG/2 ML VIAL IVP PRN (14:30)
[2018-06-04] MEDS ORDERED: SODIUM CHLORIDE FLUSH 0.9% 10 ML SYRINGE IVP PRN (14:30)
[2018-06-04] MEDS ORDERED: NITROGLYCERIN SL 0.4 MG TABLET SL PRN (14:42)
--- NOTE | 2018-06-04 14:46 | HISTORY & PHYSICAL EXAMINATION ---
Chief Complaint - Chief Complaint Chief Complaint: chest pain History of Present Illness - History of Present Illness HPI Comment/Other: is an 82-year-old male with a PMH significance for recurrent chest pain without acute ACS, HTN, HLD, DM2, GERD, osteoarthritis, who present ER for complaint of chest pain. Pt states that he had approximately 15 minutes of bilateral blurry vision today while eating breakfast. Then it was resolved. About 10am morning he went outside to help his trim the jose bushes, he developed left-sided chest pain, described as a squeezing and pressure which lasted about 30 minutes. The pain was only located in left chest, did not radiate to other locations. Pt denies nausea, vomiting, shortness of breath, sweating when he had chest pain. After chest pain was resolved, he felt normal. Pt report he had similar chest pain happened about one year ago. He also report he had stress test on middle of 2016, in which pt passed the test. He did take 325 mg aspirin prior to arrival, now he felt normal. pt's first troponin was negative, and EKG was unchanged History - Past Medical History Cardiovascular: reports: Hypertension, High cholesterol Respiratory: reports: None Endocrine/Autoimmune: reports: Type 2 diabetes GI: reports: GERD : reports: Other Psych: reports: None Musculoskeletal: reports: Osteoarthritis Derm: reports: None MRSA Hx?: No - Past Surgical History General: reports: Appendectomy Ortho: reports: Hip replacement HEENT: reports: Cataracts - Family & Social History Family History: Mother: , Diabetes, Type 2, Father: , CAD, Diabetes, Type 2 Family History Comment/Other: Pt is living with his at [facility], no childre. he does not know much about his parants medical conditions. Living arrangement: At home Living Situation: With spouse/s.o. - POLST Patient has POLST: Yes POLST Status: Full Code Meds/Allgy - Home Medications Home Medications: Ambulatory Orders Medication Instructions Recorded Confirmed Allopurinol 300 mg PO DAILY 06/25/17 06/04/18 Felodipine [Felodipine ER] 10 mg PO DAILY 06/25/17 06/04/18 Losartan Potassium 100 mg PO DAILY 06/25/17 06/04/18 Metoprolol Succinate 50 mg PO DAILY 06/25/17 06/04/18 metFORMIN [Glucophage] 500 mg PO BID 06/25/17 06/04/18 raNITIdine [Zantac] 150 mg PO BID 06/25/17 06/04/18 Acetaminophen 1,000 mg PO BID 06/04/18 06/04/18 Aspirin [Cameron] 325 mg PO BID 06/04/18 06/04/18 - Allergies Allergies/Adverse Reactions: Allergies Allergy/AdvReac Type Severity Reaction Status Date / Time No Known Drug Allergies Allergy Verified 06/25/17 11:20 Review of Systems - Constitutional Constitutional: denies: Fatigue, Fever, Chills, Malaise, Weakness, Poor appetite , Diaphoresis, Night sweats - Eyes Eyes: denies: Pain, Irritation, Amaurosis, Blurred vision, Spots in vision, Field loss, Vision loss, Dipolpia - Ears, Nose & Throat Ears, Nose & Throat: denies: Ear pain, Hearing loss, Hearing aids, Vertigo, Nasal pain, Nasal discharge, Nosebleeds, Nasal congestion, Postnasal drainage, Dentures, Sore throat, Hoarseness, Mouth lesions, Bleeding gums - Cardiovascular Cariovascular: reports: Chest pain. denies: Irregular heart rate, Palpitations , Edema, Lightheadedness, Syncope, Exertional dyspnea, Decr. exercise tolerance - Respiratory Respiratory: denies: Cough, Sputum production, Wheezing, Snoring, Hemoptysis, Orthopnea, SOB at rest, SOB with exertion - Gastrointestinal Gastrointestinal: denies: Abdominal pain, Abdominal distention, Constipation, Diarrhea, Change in bowel habits, Rectal bleeding, Black stools, Bloody stools, Nausea, Vomiting, Bile emesis, Thomas blood emesis, Coffee grounds emesis, Reflux /heartburn - Genitourinary Genitourinary: denies: Dysuria, Frequency, Urgency, Hematuria, Incontinence, Flank pain, Nocturia, Urethral discharge - Musculoskeletal Musculoskeletal: denies: Muscle pain, Back pain, Muscle aches, Stiffness, Limited range of motion, Muscle weakness, Gout, Joint pain - Integumentary Integumentary: denies: Rash, Pruritis, Lesions, Dryness, Lumps, Acne, Pigment changes, Nail changes - Neurological Neurological: denies: General weakness, Focal weakness, Headache, Dizziness, Numbness, Memory problems, Pre-existing deficit, Abnormal gait, Seizures, Incoordination, Slurred speech - Psychiatric Psychiatric: denies: Depression, Anxiety, Suicidal, Delusions, Hallucinations, Homicidal - Endocrine Endocrine: denies: Polyuria, Polydypsia, Polyphagia, Intolerance to cold - Hematologic/Lymphatic Hematologic/Lymphatic: denies: Anemia, Bruising, Petechiae, Blood clots, Lymphadenopathy, Bleeding tendencies Exam - Vital Signs Reviewed Vital Signs: Yes Vital Signs: Vital Signs x48h Temp Pulse Resp BP Pulse Ox 06/04/18 13:00 77 133/66 H 98 06/04/18 12:29 78 15 122/75 97 06/04/18 12:23 36.2 C L 80 13 136/77 H 96 - Physical Exam General Appearance: positive: No acute distress, Alert. negative: Lethargic Eyes Bilateral: positive: Normal inspection, PERRL, No lid inflammation, Conjunctivae nml ENT: positive: ENT inspection nml, Pharynx nml, No signs of dehydration. negative: Purulent nasal drainage, Pharyngeal erythema, Oral lesions Neck: positive: Nml inspection, Thyroid nml, No JVD, Trachea midline. negative : Thyromegaly, Lymphadenopathy (R), Lymphadenopathy (L), Stiff neck, Swelling/ bruising, Tracheal deviation Respiratory: positive: Chest non-tender, No respiratory distress, Breath sounds nml. negative: Wheezes, Rales, Rhonchi Cardiovascular: positive: Regular rate & rhythm, No murmur, No gallop. negative : Irregularly irregular, Extrasystoles, Tachycardia, Bradycardia, JVD present, Systolic murmur, Diastolic murmur Peripheral Pulses: positive: 2+ Abdomen: positive: Non-tender, No organomegaly, Nml bowel sounds, No distention. negative: Tenderness, Guarding, Rebound Back: positive: Nml inspection. negative: CVA tenderness (R), CVA tenderness (L ) Skin: positive: Color nml, No rash, Warm, Dry. negative: Cyanosis, Diaphoresis , Pallor Extremities: positive: Non-tender, Full ROM, Nml appearance. negative: Calf tenderness, Joint swelling, Adi's sign/cords Neurologic/Psychiatric: positive: Oriented x3, Motor nml, Sensation nml, Mood/ affect nml. negative: Weakness, Sensory loss, Facial droop, Slurred/abnml speech, Depressed mood/affect Conclusion/Plan - Problem List (1) Chest pain Conclusion/Plan: R/O AK ECHO continue serial troponin aspirin tele and vital advise pt have out-pt stress test Qualifiers: Chest pain type: unspecified Qualified Code(s): R07.9 - Chest pain, unspecified (2) DM2 (diabetes mellitus, type 2) Conclusion/Plan: hold Metformin slide scale check A1C ACHS hypoglycemia (3) HTN (hypertension) Conclusion/Plan: stable, continue home meds (4) HLD (hyperlipidemia) Conclusion/Plan: stable, continue home meds (5) GERD (gastroesophageal reflux disease) Conclusion/Plan: Pepcid, pt had Zantac in home (6) DVT prophylaxis Conclusion/Plan: SCD and Lovenox (7) Full code status Conclusion/Plan: pt request full code - Lab Results Fish Bones: 06/04/18 12:40 06/04/18 12:40 Core Measures - Anticipated LOS I expect patient to be DC'd or transferred within 96 hours.: Yes - DVT/VTE - Prophylaxis VTE/DVT Device ordered at admit?: Yes VTE/DVT Prophylaxis med ordered at admit?: Yes
[2018-06-04 15:26] LABS: HB2 TOTAL 13.9 g/dL; HEMOGLOBIN A1C 0.63 g/dL; HEMOGLOBIN A1C % 6.3 % (4.6-6.2)
[2018-06-04] MEDS: SODIUM CHLORIDE 0.9% 1,000 ML IV SCH (17:00)
[2018-06-04] MEDS: INSULIN ASPART 300 UNIT/3 ML PEN SUBQ SCH ×2 (17:26→21:41)
[2018-06-04] MEDS: SODIUM CHLORIDE FLUSH 0.9% 10 ML SYRINGE IVP SCH (17:27)
[2018-06-05] MEDS: SODIUM CHLORIDE FLUSH 0.9% 10 ML SYRINGE IVP SCH ×2 (00:21→08:55)
[2018-06-05] MEDS: SODIUM CHLORIDE 0.9% 1,000 ML IV SCH (04:38)
[2018-06-05 04:52] LABS: BASOPHILS % (AUTO) 0.6 %; EOSINOPHILS # (AUTO) 0.4 10^3/uL (0.0-0.7); EOSINOPHILS % (AUTO) 5.5 %; HGB - HEMOGLOBIN 12.1 g/dL (14.0-18.0); LYMPHOCYTES # (AUTO) 1.1 10^3/uL (1.5-3.5); LYMPHOCYTES % (AUTO) 16.5 %; MEAN CORPUSCULAR HEMOGLOBIN 35.3 pg (27.0-31.0); MEAN CORPUSCULAR HGB CONC 34.9 g/dL (32.0-36.0); MEAN CORPUSCULAR VOLUME 101.2 fL (80.0-94.0); MEAN PLATELET VOLUME 8.1 fL (7.4-11.4); MONOCYTES # (AUTO) 0.5 10^3/uL (0.0-1.0); MONOCYTES % (AUTO) 8.1 %; NEUTROPHILS # (AUTO) 4.6 10^3/uL (1.5-6.6); NEUTROPHILS % (AUTO) 69.3 %; PLT - PLATELET COUNT 104 10^3/uL (130-450); RED BLOOD COUNT 3.43 10^6/uL (4.70-6.10); RED CELL DISTRIBUTION WIDTH 15.1 % (12.0-15.0); WHITE BLOOD COUNT 6.7 x10^3/uL (4.8-10.8)
[2018-06-05 04:59] LABS: ALBUMIN 3.7 g/dL (3.2-5.5); ALBUMIN/GLOBULIN RATIO 1.6 (1.0-2.2); BILIRUBIN,TOTAL 0.5 mg/dL (0.2-1.0); CALCIUM 8.6 mg/dL (8.5-10.3); CREATININE 1.1 mg/dL (0.6-1.2); MAGNESIUM 1.7 mg/dL (1.7-2.8)
[2018-06-05] MEDS ORDERED: cloNIDine 0.1 MG TABLET PO PRN (07:31)
[2018-06-05] MEDS ORDERED: ASPIRIN 325 MG TABLET PO SCH (08:00)
[2018-06-05] MEDS: INSULIN ASPART 300 UNIT/3 ML PEN SUBQ SCH ×2 (08:55→11:56)
[2018-06-05] MEDS ORDERED: LOSARTAN 50 MG TABLET PO SCH (09:00)
[2018-06-05] MEDS ORDERED: POLYETHYLENE GLYCOL 3350 17 GM PACKET PO SCH (09:00)
[2018-06-05] MEDS ORDERED: ENOXAPARIN 40 MG/0.4 ML SYRINGE SUBQ SCH (09:00)
[2018-06-05] MEDS ORDERED: METOPROLOL SUCCINATE 50 MG TABLET PO SCH (09:00)
[2018-06-05] MEDS ORDERED: FAMOTIDINE 20 MG TABLET PO SCH (09:00)
[2018-06-05] MEDS ORDERED: FELODIPINE ER 2.5 MG TABLET PO SCH (09:00)
[2018-06-05] MEDS ORDERED: ALLOPURINOL 100 MG TABLET PO SCH (09:00)
[2018-06-05] MEDS: IBUPROFEN 600 MG TABLET PO SCH ×2 (10:34→11:52)
[2018-06-05 12:05] VITALS: BP 141/68
--- NOTE | 2018-06-05 12:51 | Discharge Plan ---
Discharge Plan Disposition: Home, Self Care Condition: Poor Prescriptions: Ibuprofen [Motrin] 600 mg PO Q6HR PRN #15 tablet PRN Reason: Pain Diet: Diabetic Activity Restrictions: Activity as Tolerated Shower Restrictions: No (fall precaution) Instruction Topics: ED Chest Pain Atypical Unkn Cause, Ibuprofen tablets and capsules Additional Instructions or Follow Up instructions: You may follow up your PCP in one to two weeks, may follow up your label designer as out-pt for stress test as needed. Should your symptoms return or worsen, you may present ER or call 911 for help No Smoking: If you smoke, Please STOP! Call for help. Follow-up with: INA HYDE MD [Primary Care Provider] -
--- NOTE | 2018-06-05 12:57 | DISCHARGE SUMMARY ---
Discharge Summary Discharge Date: 06/05/18 Discharging Provider: Madrigal Primary Care Provider: Mario Fonseca Condition at Discharge: Poor Discharge Disposition: 01 Home, Self Care Discharge Facility Name: home - DIAGNOSES Admission Diagnoses: (1) Chest pain (2) DM2 (diabetes mellitus, type 2) (3) HTN (hypertension) (4) HLD (hyperlipidemia) (5) GERD (gastroesophageal reflux disease) Discharge Diagnoses with Status of Each Condition: (1) Chest pain resolved. No more chest pain after pt had ibuprofen three troponin were negative, ECHO is unremarkable, EKG is unremarkable. Pt report he had similar chest pain before, and had a stress test which was negative. it indicates atypical chest pain (2) DM2 (diabetes mellitus, type 2) stable, follow up PCP (3) HTN (hypertension) stable (4) HLD (hyperlipidemia) stable (5) GERD (gastroesophageal reflux disease) stable - HPI History of Present Illness: is an 82-year-old male with a [facility] significance for recurrent chest pain without acute ACS, HTN, HLD, DM2, GERD, osteoarthritis, who present ER for complaint of chest pain. Pt states that he had approximately 15 minutes of bilateral blurry vision today while eating breakfast. Then it was resolved. About 10am morning he went outside to help his trim the jose bushes, he developed left-sided chest pain, described as a squeezing and pressure which lasted about 30 minutes. The pain was only located in left chest, did not radiate to other locations. Pt denies nausea, vomiting, shortness of breath, sweating when he had chest pain. After chest pain was resolved, he felt normal. Pt report he had similar chest pain happened about one year ago. He also report he had stress test on middle of 2016, in which pt passed the test. He did take 325 mg aspirin prior to arrival, now he felt normal. pt's first troponin was negative, and EKG was unchanged - ALLERGIES Allergies/Adverse Reactions: Allergies Allergy/AdvReac Type Severity Reaction Status Date / Time No Known Drug Allergies Allergy Verified 06/25/17 11:20 - MEDICATIONS Home Medications: Ambulatory Orders Medication Instructions Recorded Confirmed Allopurinol 300 mg PO DAILY 06/25/17 06/04/18 Felodipine [Felodipine ER] 10 mg PO DAILY 06/25/17 06/04/18 Losartan Potassium 100 mg PO DAILY 06/25/17 06/04/18 Metoprolol Succinate 50 mg PO DAILY 06/25/17 06/04/18 metFORMIN [Glucophage] 500 mg PO BID 06/25/17 06/04/18 raNITIdine [Zantac] 150 mg PO BID 06/25/17 06/04/18 Acetaminophen 1,000 mg PO BID 06/04/18 06/04/18 Aspirin [Cameron] 325 mg PO BID 06/04/18 06/04/18 Ibuprofen [Motrin] 600 mg PO Q6HR PRN #15 tablet 06/05/18 - PHYSICAL EXAM AT DISCHARGE General Appearance: positive: No acute distress, Alert. negative: Lethargic Eyes Bilateral: positive: Normal inspection, PERRL, No lid inflammation, Conjunctivae nml ENT: positive: ENT inspection nml, Pharynx nml, No signs of dehydration. negative: Purulent nasal drainage, Pharyngeal erythema, Oral lesions Neck: positive: Nml inspection, Thyroid nml, No JVD, Trachea midline. negative : Thyromegaly, Lymphadenopathy (R), Lymphadenopathy (L), Stiff neck, Swelling/ bruising, Tracheal deviation Respiratory: positive: Chest non-tender, No respiratory distress, Breath sounds nml. negative: Wheezes, Rales, Rhonchi Cardiovascular: positive: Regular rate & rhythm, No murmur, No gallop. negative : Irregularly irregular, Extrasystoles, Tachycardia, Bradycardia, JVD present, Systolic murmur, Diastolic murmur Peripheral Pulses: positive: 2+ Abdomen: positive: Non-tender, No organomegaly, Nml bowel sounds, No distention. negative: Tenderness, Guarding, Rebound Back: positive: Nml inspection. negative: CVA tenderness (R), CVA tenderness (L ) Skin: positive: Color nml, No rash, Warm, Dry. negative: Cyanosis, Diaphoresis , Pallor Extremities: positive: Non-tender, Full ROM, Nml appearance. negative: No pedal edema, Pedal edema, Calf tenderness Neurologic/Psychiatric: positive: Oriented x3, Motor nml, Sensation nml, Mood/ affect nml. negative: Weakness, Sensory loss, Facial droop, Slurred/abnml speech, Depressed mood/affect - LABS Result Diagrams: 06/05/18 04:30 06/05/18 04:30 - FOLLOW UP Follow Up: You may follow up your PCP in one to two weeks, may follow up your rocket engine component mechanic as out-pt for stress test as needed. Should your symptoms return or worsen, you may present ER or call 911 for help - TIME SPENT Time Spent in Discharge (Minutes): 45
== END 2018-06-05 14:24 | disposition home or self-care (01) ==
LOC: ED 12:10 → MS2 14:30
PROVIDERS: ADMIT Nurse Practitioner Gerontology; ATTEND Nurse Practitioner Gerontology
DX: R07.89 Other chest pain (principal); E11.9 Type 2 diabetes mellitus without complications; I10 Essential (primary) hypertension; E78.5 Hyperlipidemia, unspecified; K21.9 Gastro-esophageal reflux disease without esophagitis; M19.90 Unspecified osteoarthritis, unspecified site; Z96.649 Presence of unspecified artificial hip joint; Z79.82 Long term (current) use of aspirin; Z79.84 Long term (current) use of oral hypoglycemic drugs
CPT/HCPCS: 36415; 71045; 80053; 83036; 83690; 83735; 84484; 85025; 85379; 93005; 93306; 99284; A9270; G0378

== ENCOUNTER 2018-09-30 08:00 | Outpatient (CLI) | payer MEDICARE, OTHER ==
[2018-09-30 18:14] LABS: HEMOGLOBIN A1C 0.68 g/dL; HEMOGLOBIN A1C % 6.3 % (4.6-6.2)
[2018-09-30 18:18] LABS: ALBUMIN 4.3 g/dL (3.2-5.5); ALBUMIN/GLOBULIN RATIO 1.6 (1.0-2.2); ALKALINE PHOSPHATASE 61 IU/L (42-121); ALT ALANINE AMINOTRANSFERASE 18 IU/L (10-60); AST ASPARTATE AMINOTRANSFERASE 18 IU/L (10-42); BILIRUBIN,TOTAL 1.1 mg/dL (0.2-1.0); BUN - BLOOD UREA NITROGEN 28 mg/dL (6-20); CALCIUM 9.4 mg/dL (8.5-10.3); CARBON DIOXIDE - CO2 26 mmol/L (21-32); CHLORIDE 102 mmol/L (101-111); CHOL/HDL RATIO 3.3 (<5.0); CHOLESTEROL 223 mg/dL; CREATININE 1.5 mg/dL (0.6-1.2); GFR - MDRD 44 (>89); GLUCOSE 149 mg/dL (70-100); HDL CHOLESTEROL 68 mg/dL; LDL CHOLESTEROL,CALCULATED 120 mg/dL; LDL/HDL RATIO 1.8 (<3.6); SODIUM 136 mmol/L (135-145); VLDL CHOLESTEROL 35 mg/dL
== END 2018-09-30 23:59 | disposition home or self-care (01) ==
LOC: LAB.S 08:00
PROVIDERS: ATTEND Nurse Practitioner Family
DX: E78.5 Hyperlipidemia, unspecified (principal); E11.22 Type 2 diabetes mellitus with diabetic chronic kidney disease; I12.9 Hypertensive chronic kidney disease with stage 1 through stage 4 chronic kidney disease, or unspecified chronic kidney disease; N18.3 Chronic kidney disease, stage 3 (moderate)
CPT/HCPCS: 36415; 80053; 80061; 83036; 83721

== ENCOUNTER 2019-05-05 08:58 | Outpatient (CLI) | payer MEDICARE, OTHER ==
[2019-05-05 18:52] LABS: ALKALINE PHOSPHATASE 53 IU/L (42-121); ALT ALANINE AMINOTRANSFERASE 15 IU/L (10-60); AST ASPARTATE AMINOTRANSFERASE 17 IU/L (10-42); BILIRUBIN,TOTAL 0.9 mg/dL (0.2-1.0); BUN - BLOOD UREA NITROGEN 25 mg/dL (6-20); CALCIUM 8.9 mg/dL (8.5-10.3); CARBON DIOXIDE - CO2 22 mmol/L (21-32); CHLORIDE 107 mmol/L (101-111); CREATININE 1.4 mg/dL (0.6-1.2); GFR - MDRD 48 (>89); GLUCOSE 179 mg/dL (70-100); SODIUM 139 mmol/L (135-145)
[2019-05-05 18:53] LABS: ALBUMIN 3.9 g/dL (3.2-5.5); ALBUMIN/GLOBULIN RATIO 1.5 (1.0-2.2); CHOL/HDL RATIO 2.7 (<5.0); CHOLESTEROL 177 mg/dL; HDL CHOLESTEROL 65 mg/dL; LDL CHOLESTEROL,CALCULATED 96 mg/dL; LDL/HDL RATIO 1.5 (<3.6); TOTAL PROTEIN 6.5 g/dL (6.7-8.2); VLDL CHOLESTEROL 16 mg/dL
[2019-05-05 19:21] LABS: HB2 TOTAL 13.9 g/dL; HEMOGLOBIN A1C 0.69 g/dL; HEMOGLOBIN A1C % 6.7 % (4.6-6.2)
== END 2019-05-05 08:59 | disposition home or self-care (01) ==
LOC: LAB.S 08:58
PROVIDERS: ATTEND Internal Medicine
DX: E11.9 Type 2 diabetes mellitus without complications (principal)
CPT/HCPCS: 36415; 80053; 80061; 83036; 83721

== ENCOUNTER 2020-04-27 09:34 | Outpatient (CLI) | payer MEDICARE, OTHER ==
[2020-04-27 16:01] LABS: ALBUMIN 4.4 g/dL (3.2-5.5); ALBUMIN/GLOBULIN RATIO 1.9 (1.0-2.2); ALKALINE PHOSPHATASE 59 IU/L (42-121); ALT ALANINE AMINOTRANSFERASE 18 IU/L (10-60); AST ASPARTATE AMINOTRANSFERASE 18 IU/L (10-42); BILIRUBIN,TOTAL 1.2 mg/dL (0.2-1.0); BUN - BLOOD UREA NITROGEN 40 mg/dL (6-20); CALCIUM 8.8 mg/dL (8.5-10.3); CARBON DIOXIDE - CO2 26 mmol/L (21-32); CHLORIDE 105 mmol/L (101-111); CHOL/HDL RATIO 2.4 (<5.0); CHOLESTEROL 190 mg/dL; CREATININE 1.7 mg/dL (0.6-1.2); GLUCOSE 166 mg/dL (70-100); HDL CHOLESTEROL 78 mg/dL; LDL CHOLESTEROL,CALCULATED 101 mg/dL; LDL/HDL RATIO 1.3 (<3.6); SODIUM 138 mmol/L (135-145); TOTAL PROTEIN 6.7 g/dL (6.7-8.2); VLDL CHOLESTEROL 11 mg/dL
[2020-04-27 16:34] LABS: HB2 TOTAL 13.6 g/dL; HEMOGLOBIN A1C 0.64 g/dL; HEMOGLOBIN A1C % 6.5 % (4.6-6.2)
== END 2020-04-27 09:35 | disposition home or self-care (01) ==
LOC: LAB.S 09:34
PROVIDERS: ATTEND Internal Medicine
DX: E11.9 Type 2 diabetes mellitus without complications (principal)
CPT/HCPCS: 36415; 80053; 80061; 83036; 83721

== ENCOUNTER 2020-05-17 08:03 | Outpatient (CLI) | payer MEDICARE, OTHER ==
--- NOTE | 2020-05-19 09:48 | XRAY Report ---
PROCEDURE: Foot 3 View LT INDICATIONS: LEFT FOOT PAIN TECHNIQUE: 3 views of the foot were acquired. COMPARISON: None FINDINGS: Bones: Small bone fragment noted adjacent to the medial margin of the head of the fifth metatarsal wh ich could represent heterotopic desiccation versus avulsion fracture. No suspicious bony lesions. Fir st MTP joint osteoarthritis. Soft tissues: No tibiotalar joint effusion. Achilles tendon appears normal. IMPRESSION: Small calcification adjacent to the medial margin fifth metatarsal compatible with heterotopic ossifi cation versus avulsion fracture. Reviewed by: Rosalee Watson MD, PhD on 05/19/2020 9:47 AM PDT Approved by: Rosalee Watson MD, PhD on 05/19/2020 9:47 AM PDT Station ID: [id number]
== END 2020-05-17 23:59 | disposition home or self-care (01) ==
LOC: DI.S 08:03
PROVIDERS: ATTEND Physician Assistant Medical
DX: M79.672 Pain in left foot (principal); M25.872 Other specified joint disorders, left ankle and foot; M19.072 Primary osteoarthritis, left ankle and foot

== ENCOUNTER 2021-04-25 09:22 | Outpatient (CLI) | payer MEDICARE, OTHER ==
[2021-04-25 16:25] LABS: BASOPHILS # (AUTO) 0.1 10^3/uL (0.0-0.1); BASOPHILS % (AUTO) 0.9 %; EOSINOPHILS # (AUTO) 0.4 10^3/uL (0.0-0.7); EOSINOPHILS % (AUTO) 5.3 %; HCT - HEMATOCRIT 38.6 % (42.0-52.0); HGB - HEMOGLOBIN 12.6 g/dL (14.0-18.0); LYMPHOCYTES # (AUTO) 1.6 10^3/uL (1.5-3.5); LYMPHOCYTES % (AUTO) 20.4 %; MEAN CORPUSCULAR HEMOGLOBIN 34.1 pg (27.0-31.0); MEAN CORPUSCULAR HGB CONC 32.6 g/dL (32.0-36.0); MEAN CORPUSCULAR VOLUME 104.6 fL (80.0-94.0); MEAN PLATELET VOLUME 11.9 fL (7.4-11.4); MONOCYTES # (AUTO) 0.6 10^3/uL (0.0-1.0); MONOCYTES % (AUTO) 7.5 %; NEUTROPHILS # (AUTO) 5.2 10^3/uL (1.5-6.6); NEUTROPHILS % (AUTO) 65.4 %; PLT - PLATELET COUNT 111 10^3/uL (130-450); RED BLOOD COUNT 3.69 10^6/uL (4.70-6.10); RED CELL DISTRIBUTION WIDTH 14.3 % (12.0-15.0)
[2021-04-25 16:56] LABS: THYROID STIMULATING HORMONE 5.61 uIU/mL (0.34-5.60)
[2021-04-25 16:57] LABS: ALBUMIN 4.2 g/dL (3.2-5.5); ALBUMIN/GLOBULIN RATIO 1.6 (1.0-2.2); ALKALINE PHOSPHATASE 51 IU/L (42-121); ALT ALANINE AMINOTRANSFERASE 16 IU/L (10-60); AST ASPARTATE AMINOTRANSFERASE 17 IU/L (10-42); BUN - BLOOD UREA NITROGEN 43 mg/dL (6-20); CALCIUM 9.1 mg/dL (8.5-10.3); CARBON DIOXIDE - CO2 26 mmol/L (21-32); CHLORIDE 105 mmol/L (101-111); CHOL/HDL RATIO 3.1 (<5.0); CHOLESTEROL 199 mg/dL; CREATININE 1.8 mg/dL (0.6-1.2); GFR - MDRD 36 (>89); GLUCOSE 179 mg/dL (70-100); HDL CHOLESTEROL 65 mg/dL; LDL CHOLESTEROL,CALCULATED 115 mg/dL; LDL/HDL RATIO 1.8 (<3.6); SODIUM 137 mmol/L (135-145); TOTAL PROTEIN 6.8 g/dL (6.7-8.2); TRIGLYCERIDES 94 mg/dL; VLDL CHOLESTEROL 19 mg/dL
[2021-04-25 17:34] LABS: FREE T4 (FREE THYROXINE) 0.89 ng/dL (0.58-1.64)
== END 2021-04-25 09:23 | disposition home or self-care (01) ==
LOC: LAB.S 09:22
PROVIDERS: ATTEND Registered Nurse
DX: E11.22 Type 2 diabetes mellitus with diabetic chronic kidney disease (principal); N18.30 Chronic kidney disease, stage 3 unspecified; E78.5 Hyperlipidemia, unspecified; M10.9 Gout, unspecified
CPT/HCPCS: 36415; 80053; 80061; 83721; 84439; 84443; 85025

== ENCOUNTER 2021-10-25 01:26 | Outpatient (CLI) | payer MEDICARE, OTHER | END 2021-10-25 01:27 | disposition critical access hospital (66) | LOC: EMS 01:26 | DX: R68.84 Jaw pain (principal); M54.2 Cervicalgia; R51.9 Headache, unspecified; I48.91 Unspecified atrial fibrillation | CPT/HCPCS: A0425; A0429 ==

== ENCOUNTER 2021-10-25 02:07 | Emergency (ER) | payer MEDICARE, OTHER ==
[2021-10-25 02:26] LABS: BASOPHILS # (AUTO) 0.1 10^3/uL (0.0-0.1); BASOPHILS % (AUTO) 0.9 %; EOSINOPHILS # (AUTO) 0.6 10^3/uL (0.0-0.7); HGB - HEMOGLOBIN 13.8 g/dL (14.0-18.0); LYMPHOCYTES # (AUTO) 1.8 10^3/uL (1.5-3.5); LYMPHOCYTES % (AUTO) 22.4 %; MEAN CORPUSCULAR HEMOGLOBIN 34.4 pg (27.0-31.0); MEAN CORPUSCULAR HGB CONC 33.7 g/dL (32.0-36.0); MEAN CORPUSCULAR VOLUME 102.2 fL (80.0-94.0); MEAN PLATELET VOLUME 10.9 fL (7.4-11.4); MONOCYTES # (AUTO) 0.8 10^3/uL (0.0-1.0); MONOCYTES % (AUTO) 10.1 %; NEUTROPHILS # (AUTO) 4.8 10^3/uL (1.5-6.6); NEUTROPHILS % (AUTO) 59.1 %; PLT - PLATELET COUNT 134 10^3/uL (130-450); RED BLOOD COUNT 4.01 10^6/uL (4.70-6.10); RED CELL DISTRIBUTION WIDTH 14.1 % (12.0-15.0); WHITE BLOOD COUNT 8.1 x10^3/uL (4.8-10.8)
[2021-10-25] MEDS ORDERED: HYDROmorphone 0.5 MG/0.5 ML SYRINGE IVP STA (02:31)
[2021-10-25] MEDS ORDERED: SODIUM CHLORIDE 0.9% 1,000 ML IV STA ×2 (02:31→07:44)
[2021-10-25] MEDS ORDERED: NITROGLYCERIN SL 0.4 MG TABLET SL STA (02:31)
[2021-10-25 02:41] LABS: ALBUMIN 4.3 g/dL (3.2-5.5); ALBUMIN/GLOBULIN RATIO 1.4 (1.0-2.2); BILIRUBIN,TOTAL 0.5 mg/dL (0.2-1.0); CALCIUM 9.5 mg/dL (8.5-10.3); CREATININE 1.6 mg/dL (0.6-1.2); POTASSIUM 4.3 mmol/L (3.5-5.0); TOTAL PROTEIN 7.3 g/dL (6.7-8.2)
--- NOTE | 2021-10-25 07:08 | ED Physician Documentation ---
History of Present Illness - Stated complaint Stated Complaint: CHEST/JAW PX - Chief complaint Chief Complaint: Cardiac - History obtained from History obtained from: Patient - Additonal information Additional information: Patient comes to the emergency department chief complaint of "I woke up at midnight with pain in my face and jaw". Patient states that he went to bed last night feeling fine. When he woke up at midnight, it was because he felt the need to urinate, but then he noticed that he was having pain in his right jaw and face that seem to radiate through to the left midface and mandible, as well. He states he also noticed some pain in both sides of his upper neck. Patient states that he did not have any chest pain or shortness of breath. No nausea or vomiting. He states he has felt the need to burp a little over about the last hour, but does not feel as though he is going to vomit. The patient states that he took an aspirin at home, and began to get nervous about the pain, so he asked his to call EMS. EMS states that the patient has had hypertension in route, with blood pressures around 160/100. The patient had a twelve-lead performed in route which did not show any acute findings, Except for rate controlled atrial fibrillation, which the patient was not aware that he had. He denies any history of palpitations, but states that he does feel as though his heartbeat is more prominent sometimes. The patient denies any cardiac history. Of any kind. He has a history of hypertension, for which he has been stable on his medications and has not missed any doses, and also, a history of diabetes for which he takes metformin. He is not a smoker. The patient states his pain is about the same now. He states that seems to be a little worse when he clenches his teeth and also, when he lays back as opposed to sitting up. Patient does not have any known history of bruxism. He has never had symptoms like this before. No other complaints at this time. No dizziness or lightheadedness. Review of Systems Ten Systems: 10 systems reviewed and negative Constitutional: reports: Reviewed and negative Eyes: reports: Reviewed and negative Ears: reports: Reviewed and negative Nose: reports: Reviewed and negative Throat: reports: Reviewed and negative Cardiac: reports: Reviewed and negative. denies: Chest pain / pressure, Palpitations Respiratory: reports: Reviewed and negative. denies: Dyspnea GI: reports: Reviewed and negative : reports: Reviewed and negative Skin: reports: Reviewed and negative Musculoskeletal: reports: Reviewed and negative Neurologic: reports: Reviewed and negative Psychiatric: reports: Reviewed and negative Endocrine: reports: Reviewed and negative Immunocompromised: reports: Reviewed and negative PD PAST MEDICAL HISTORY - Past Medical History Past Medical History: Yes Cardiovascular: Hypertension, High cholesterol Respiratory: None Endocrine/Autoimmune: Type 2 diabetes GI: GERD : Other Psych: None Musculoskeletal: Osteoarthritis Derm: None - Past Surgical History Past Surgical History: Yes General: Appendectomy Ortho: Hip replacement HEENT: Cataracts - Present Medications Home Medications: Ambulatory Orders Medication Instructions Recorded Confirmed Felodipine [Felodipine ER] 10 mg PO DAILY 06/25/17 06/04/18 Losartan Potassium 100 mg PO DAILY 06/25/17 06/04/18 Metoprolol Succinate 50 mg PO DAILY 06/25/17 06/04/18 allopurinoL [Allopurinol] 300 mg PO DAILY 06/25/17 06/04/18 metFORMIN [Glucophage] 500 mg PO BID 06/25/17 06/04/18 raNITIdine [Zantac] 150 mg PO BID 06/25/17 06/04/18 Acetaminophen 1,000 mg PO BID 06/04/18 06/04/18 Aspirin [Cameron] 325 mg PO BID 06/04/18 06/04/18 Ibuprofen [Motrin] 600 mg PO Q6HR PRN #15 tablet 06/05/18 - Allergies Allergies/Adverse Reactions: Allergies Allergy/AdvReac Type Severity Reaction Status Date / Time No Known Drug Allergies Allergy Verified 10/25/21 02:17 - Social History Does the pt smoke?: No Smoking Status: Never smoker Does the pt drink ETOH?: Yes Does the pt have substance abuse?: No - Immunizations Immunizations are current?: Yes - POLST Patient has POLST: Yes POLST Status: Full Code PD ED PE NORMAL - Vitals Vital signs reviewed: Yes - General General: Alert and oriented X 3, No acute distress, Well developed/nourished, Other (Well-appearing patient) - HEENT HEENT: Atraumatic, PERRL, EOMI, Moist mucous membranes, Other (No facial tenderness.) - Neck Neck: Supple, no meningeal sign, No adenopathy, Other (No neck tenderness) - Cardiac Cardiac: No murmur, Strong equal pulses, Other (Irregular rhythm and rate, not tachycardic or bradycardic) - Respiratory Respiratory: No respiratory distress, Clear bilaterally - Abdomen Abdomen: Soft, Non tender, Non distended - Derm Derm: Normal color, Warm and dry, No rash - Extremities Extremities: No deformity, No edema, No calf tenderness / cord - Neuro Neuro: Alert and oriented X 3, marketing performance analyst 2-12 intact, No motor deficit, No sensory deficit, Normal speech - Psych Psych: Normal mood, Normal affect Results - Vitals Vitals: Vital Signs - 24 hr 10/25/21 10/25/21 10/25/21 02:14 03:00 05:00 Temperature 35.9 C L Heart Rate 79 60 71 Respiratory 18 21 18 Rate Blood Pressure 185/81 H 138/75 H 160/77 H O2 Saturation 98 98 97 10/25/21 07:21 Temperature Heart Rate 77 Respiratory 24 Rate Blood Pressure 182/83 H O2 Saturation 96 Oxygen O2 Source Room air - EKG (time done) 0210 Rate: Rate (enter#) (73) Rhythm: Atrial fibrillation Sun: LAD Intervals: Other (Intraventricular conduction delay, Borderline) QRS: Normal Ischemia: Normal ST segments Compare to prior EKG: Old EKG unavailable Computer interpretation: Agree with computer - Labs Labs: Laboratory Tests 10/25/21 10/25/21 10/25/21 02:22 02:22 02:22 WBC 8.1 RBC 4.01 L Hgb 13.8 L Hct 41.0 L MCV 102.2 H MCH 34.4 H MCHC 33.7 RDW 14.1 Plt Count 134 MPV 10.9 Neut # (Auto) 4.8 Lymph # (Auto) 1.8 Camp # (Auto) 0.8 Eos # (Auto) 0.6 Baso # (Auto) 0.1 Absolute Nucleated RBC 0.00 Nucleated RBC % 0.0 Sodium 140 Potassium 4.3 Chloride 108 Carbon Dioxide 21 Anion Gap 11.0 BUN 42 H Creatinine 1.6 H Estimated GFR (MDRD) 41 L Glucose 186 H Calcium 9.5 Total Bilirubin 0.5 AST 17 ALT 15 Alkaline Phosphatase 63 Troponin I High Sens 15.7 Total Protein 7.3 Albumin 4.3 Globulin 3.0 Albumin/Globulin Ratio 1.4 Lipase 46 10/25/21 05:18 WBC RBC Hgb Hct MCV MCH MCHC RDW Plt Count MPV Neut # (Auto) Lymph # (Auto) Camp # (Auto) Eos # (Auto) Baso # (Auto) Absolute Nucleated RBC Nucleated RBC % Sodium Potassium Chloride Carbon Dioxide Anion Gap BUN Creatinine Estimated GFR (MDRD) Glucose Calcium Total Bilirubin AST ALT Alkaline Phosphatase Troponin I High Sens 21.7 H* Total Protein Albumin Globulin Albumin/Globulin Ratio Lipase PD MEDICAL DECISION MAKING - ED course Complexity details: reviewed results, re-evaluated patient, considered differential, d/w patient ED course: The patient was well-appearing in the emergency department, and it was unclear exactly what was causing his facial and mandibular pain. The symptoms were somewhat atypical of radiating cardiac pain, but given the patient's age and risk factors, as well as the inability to reproduce the pain with palpation or movement of the mandible, I felt he should be worked up for possible cardiac source. The patient had already taken aspirin at home before coming, but I did give him 0.4 mg of sublingual nitroglycerin. This did not significantly change his facial and mandibular pain. The patient was also given 0.5 mg of Dilaudid which did help. The patient had no other complaints throughout his stay in the emergency department. His EKG showed rate controlled A. fib without signs of acute ischemia. His initial troponin was 15.7, but I felt this should be repeated. At approximately the 2-hour mustapha, his troponin had gone up by 6 points to 21.7. I discussed the case with Dr. Wade, who is the hospitalist on-call and has a cardiology background, to determine how to proceed. She did not feel that the patient should be admitted at this time but felt it would be better to repeat the troponin and speak with the receptionist nurse and see what they think should be done, as we do not have echo here at this time. The patient was stable and repeat troponin has been ordered at this time. [address] [facility] Registrar will be consulted once this is back. The patient has been signed out to oncoming emergency physician, Dr. Jackman, at change of shift, pending the repeat troponin, discussion with cardiology, and final disposition.
[2021-10-25 07:22] VITALS: BP 182/83
--- NOTE | 2021-10-25 07:59 | ED Physician Documentation ---
ED Addendum - Addendum Addendum: 10/25/21 08:35 86-year-old male endorsed to me by Dr. Jordan at shift change presented with jaw pain in the middle of the night and he had a nonischemic electrocardiogram demonstrating some atrial fibrillation which was new for the patient and his pain is now resolved. He did receive 1 L of saline prior to my evaluation of the patient. On my evaluation I found the patient's inferior vena cava to be 0.8 cm and collapsed completely with respiration consistent with a persistent deficit of an additional 2 L of saline. He was he was administered a second liter of saline. His troponins have trended up minimally and I suspect this is entirely due to the dehydration and not an acute coronary syndrome. A repeat EKG shows: rate of 61 sinus with inferior Q waves similar to priors. No ST segment changes. 10/25/21 08:54 Dr. Lovelace of the [facility], [place] cardiology is consulted and the case and agrees with my assessment of the patient having dehydration as the center of his abnormalities. He would like the patient to follow-up urgently as an outpatient.
--- NOTE | 2021-10-25 08:22 | XRAY Report ---
PROCEDURE: Chest 1 View X-Ray INDICATIONS: Chest pain TECHNIQUE: One view of the chest was acquired. COMPARISON: CXR 06/04/2018. FINDINGS: Surgical changes and devices: None. Lungs and pleura: No pleural effusions or pneumothorax. Lungs are clear. Low lung volumes. Mediastinum: Mediastinal contours appear normal. Heart size is normal. Bones and chest wall: No suspicious bony lesions. Shoulder DJD. Overlying soft tissues appear unrema rkable. IMPRESSION: No acute cardiopulmonary abnormality. Low lung volumes. No significant discrepancy with the overnight preliminary interpretation. Reviewed by: Will oCburn MD on 10/25/2021 8:20 AM [facility] Approved by: Will Coburn MD on 10/25/2021 8:20 AM PST Station ID: [id number]
== END 2021-10-25 09:14 | disposition home or self-care (01) ==
LOC: EDUNIT# → ED 02:07
DX: I48.91 Unspecified atrial fibrillation (principal); E86.0 Dehydration; E11.9 Type 2 diabetes mellitus without complications; Z79.84 Long term (current) use of oral hypoglycemic drugs; I10 Essential (primary) hypertension; R07.9 Chest pain, unspecified
CPT/HCPCS: 36415; 71045; 80053; 83690; 84484; 85025; 93005; 96361; 96374; 99284; A9270; J1170

== ENCOUNTER 2022-05-09 09:15 | Outpatient (CLI) | payer MEDICARE, OTHER ==
[2022-05-09 14:20] LABS: BASOPHILS # (AUTO) 0.1 10^3/uL (0.0-0.1); BASOPHILS % (AUTO) 0.8 %; EOSINOPHILS # (AUTO) 0.4 10^3/uL (0.0-0.7); EOSINOPHILS % (AUTO) 4.2 %; HCT - HEMATOCRIT 33.4 % (42.0-52.0); HGB - HEMOGLOBIN 10.9 g/dL (14.0-18.0); LYMPHOCYTES # (AUTO) 1.6 10^3/uL (1.5-3.5); LYMPHOCYTES % (AUTO) 19.7 %; MEAN CORPUSCULAR HGB CONC 32.6 g/dL (32.0-36.0); MEAN PLATELET VOLUME 11.4 fL (7.4-11.4); MONOCYTES # (AUTO) 0.7 10^3/uL (0.0-1.0); MONOCYTES % (AUTO) 8.1 %; NEUTROPHILS # (AUTO) 5.5 10^3/uL (1.5-6.6); PLT - PLATELET COUNT 143 10^3/uL (130-450); RED BLOOD COUNT 3.21 10^6/uL (4.70-6.10); RED CELL DISTRIBUTION WIDTH 15.4 % (12.0-15.0); WHITE BLOOD COUNT 8.3 x10^3/uL (4.8-10.8)
[2022-05-09 15:14] LABS: ALBUMIN 4.1 g/dL (3.2-5.5); ALBUMIN/GLOBULIN RATIO 1.6 (1.0-2.2); ALKALINE PHOSPHATASE 61 IU/L (42-121); ALT ALANINE AMINOTRANSFERASE 13 IU/L (10-60); AST ASPARTATE AMINOTRANSFERASE 13 IU/L (10-42); BILIRUBIN,TOTAL 0.8 mg/dL (0.2-1.0); BUN - BLOOD UREA NITROGEN 63 mg/dL (6-20); CALCIUM 9.2 mg/dL (8.5-10.3); CARBON DIOXIDE - CO2 21 mmol/L (21-32); CHLORIDE 110 mmol/L (101-111); CHOL/HDL RATIO 2.8 (<5.0); CHOLESTEROL 149 mg/dL; CREATININE 2.3 mg/dL (0.6-1.2); GFR - MDRD 27 (>89); GLUCOSE 134 mg/dL (70-100); HDL CHOLESTEROL 54 mg/dL; LDL CHOLESTEROL,CALCULATED 80 mg/dL; LDL/HDL RATIO 1.5 (<3.6); POTASSIUM 5.1 mmol/L (3.5-5.0); SODIUM 137 mmol/L (135-145); TOTAL PROTEIN 6.6 g/dL (6.7-8.2); TRIGLYCERIDES 73 mg/dL; VLDL CHOLESTEROL 15 mg/dL
[2022-05-09 15:18] LABS: THYROID STIMULATING HORMONE 4.71 uIU/mL (0.34-5.60)
[2022-05-09 20:55] LABS: ESTIMATED AVERAGE GLUCOSE 114 mg/dL (70-100); HEMOGLOBIN A1c% 5.6 % (4.27-6.07)
== END 2022-05-09 09:16 | disposition home or self-care (01) ==
LOC: LAB.S 09:15
PROVIDERS: ATTEND Registered Nurse
DX: I10 Essential (primary) hypertension (principal); E11.9 Type 2 diabetes mellitus without complications; Z13.220 Encounter for screening for lipoid disorders
CPT/HCPCS: 36415; 80053; 80061; 83036; 83721; 84443; 85025

== ENCOUNTER 2022-07-10 11:44 | Outpatient (CLI) | payer MEDICARE, OTHER ==
[2022-07-10 14:56] LABS: CREATININE 1.7 mg/dL (0.6-1.2)
== END 2022-07-10 11:45 | disposition home or self-care (01) ==
LOC: LAB.S 11:44
PROVIDERS: ATTEND Nurse Practitioner
DX: I48.0 Paroxysmal atrial fibrillation (principal)
CPT/HCPCS: 36415; 82565

== ENCOUNTER 2022-08-11 14:12 | Outpatient (CLI) | payer MEDICARE, OTHER ==
[2022-08-11 20:03] LABS: BASOPHILS # (AUTO) 0.1 10^3/uL (0.0-0.1); BASOPHILS % (AUTO) 0.8 %; EOSINOPHILS # (AUTO) 0.5 10^3/uL (0.0-0.7); EOSINOPHILS % (AUTO) 4.7 %; HCT - HEMATOCRIT 37.4 % (42.0-52.0); HGB - HEMOGLOBIN 11.9 g/dL (14.0-18.0); LYMPHOCYTES % (AUTO) 19.9 %; MEAN CORPUSCULAR HGB CONC 31.8 g/dL (32.0-36.0); MEAN CORPUSCULAR VOLUME 103.6 fL (80.0-94.0); MONOCYTES # (AUTO) 0.8 10^3/uL (0.0-1.0); NEUTROPHILS # (AUTO) 6.7 10^3/uL (1.5-6.6); PLT - PLATELET COUNT 140 10^3/uL (130-450); RED BLOOD COUNT 3.61 10^6/uL (4.70-6.10); RED CELL DISTRIBUTION WIDTH 15.2 % (12.0-15.0); WHITE BLOOD COUNT 10.1 x10^3/uL (4.8-10.8)
[2022-08-11 20:08] LABS: CALCIUM 9.4 mg/dL (8.5-10.3); CREATININE 1.8 mg/dL (0.6-1.2); POTASSIUM 5.4 mmol/L (3.5-5.0)
== END 2022-08-11 14:13 | disposition home or self-care (01) ==
LOC: LAB.S 14:12
PROVIDERS: ATTEND Registered Nurse
DX: D64.9 Anemia, unspecified (principal); Z79.899 Other long term (current) drug therapy
CPT/HCPCS: 36415; 80048; 85025

== ENCOUNTER 2022-11-12 05:33 | Outpatient (CLI) | payer MEDICARE, OTHER | END 2022-11-12 05:34 | disposition short-term general hospital (02) | LOC: EMS 05:33 | DX: M25.552 Pain in left hip (principal); W06.XXXA Fall from bed, initial encounter; Y92.003 Bedroom of unspecified non-institutional (private) residence as the place of occurrence of the external cause; Z79.01 Long term (current) use of anticoagulants | CPT/HCPCS: A0425; A0429 ==

== ENCOUNTER 2022-11-22 13:29 | Outpatient (CLI) | payer MEDICARE, OTHER | END 2022-11-22 13:30 | disposition critical access hospital (66) | LOC: EMS 13:29 | DX: R10.9 Unspecified abdominal pain (principal); K59.00 Constipation, unspecified | CPT/HCPCS: A0425; A0429 ==

== ENCOUNTER 2022-11-22 13:37 | Emergency (ER) | payer MEDICARE, OTHER ==
[2022-11-22 14:14] LABS: BASOPHILS % (AUTO) 0.3 %; EOSINOPHILS # (AUTO) 0.2 10^3/uL (0.0-0.7); EOSINOPHILS % (AUTO) 1.4 %; HCT - HEMATOCRIT 29.3 % (42.0-52.0); HGB - HEMOGLOBIN 9.5 g/dL (14.0-18.0); LYMPHOCYTES # (AUTO) 0.8 10^3/uL (1.5-3.5); LYMPHOCYTES % (AUTO) 6.3 %; MEAN CORPUSCULAR HEMOGLOBIN 31.9 pg (27.0-31.0); MEAN CORPUSCULAR HGB CONC 32.4 g/dL (32.0-36.0); MEAN CORPUSCULAR VOLUME 98.3 fL (80.0-94.0); MEAN PLATELET VOLUME 9.3 fL (7.4-11.4); MONOCYTES # (AUTO) 0.9 10^3/uL (0.0-1.0); MONOCYTES % (AUTO) 7.1 %; NEUTROPHILS # (AUTO) 10.4 10^3/uL (1.5-6.6); PLT - PLATELET COUNT 199 10^3/uL (130-450); RED BLOOD COUNT 2.98 10^6/uL (4.70-6.10); WHITE BLOOD COUNT 12.6 x10^3/uL (4.8-10.8)
[2022-11-22 14:42] LABS: ALBUMIN 2.7 g/dL (3.2-5.5); ALBUMIN/GLOBULIN RATIO 0.8 (1.0-2.2); BILIRUBIN,TOTAL 1.2 mg/dL (0.2-1.0); CREATININE 1.6 mg/dL (0.6-1.2)
[2022-11-22 14:53] LABS: CALCIUM 8.7 mg/dL (8.5-10.3); POTASSIUM 4.2 mmol/L (3.5-5.0)
[2022-11-22] MEDS ORDERED: iohexoL-300 100 ML VIAL ONE (14:54)
--- NOTE | 2022-11-22 15:32 | ED Physician Documentation ---
PD HPI ABD PAIN - Stated complaint Stated Complaint: ABD PX - Chief complaint Chief Complaint: Abd Pain - History obtained from History obtained from: Patient, Other - Additional information Additional information: Patient is an 87-year-old male presenting for evaluation of difficulties with bowel movements and lower abdominal pain for several days. He has been at [facility] to recover from a recent hip surgery. They had given enemas and laxatives without any stool output. Patient reports just now having a bowel movement. He also reports having lower abdominal cramping. He denies nausea or vomiting. On review of outpatient records patient was admitted from November 12 to November 17 for a closed left hip fracture With a revision of his left hip periprosthetic fracture.He was also found to have acute urinary retention and a Almodovar catheter was placed.Labs from 6 days ago shows hemoglobin of 8.8. Review of Systems Constitutional: denies: Fever Cardiac: denies: Chest pain / pressure Respiratory: denies: Dyspnea GI: reports: Abdominal Pain, Constipation. denies: Nausea, Vomiting : denies: Hematuria Neurologic: denies: Headache PD PAST MEDICAL HISTORY - Past Medical History Cardiovascular: Hypertension, High cholesterol Respiratory: None Endocrine/Autoimmune: Type 2 diabetes GI: GERD : Other Psych: None Musculoskeletal: Osteoarthritis Derm: None - Past Surgical History Past Surgical History: Yes General: Appendectomy Ortho: Hip replacement HEENT: Cataracts - Present Medications Home Medications: Ambulatory Orders Medication Instructions Recorded Confirmed Felodipine [Felodipine ER] 10 mg PO DAILY 06/25/17 06/04/18 Losartan Potassium 100 mg PO DAILY 06/25/17 06/04/18 Metoprolol Succinate 50 mg PO DAILY 06/25/17 06/04/18 allopurinoL [Allopurinol] 300 mg PO DAILY 06/25/17 06/04/18 metFORMIN [Glucophage] 500 mg PO BID 06/25/17 06/04/18 raNITIdine [Zantac] 150 mg PO BID 06/25/17 06/04/18 Acetaminophen 1,000 mg PO BID 06/04/18 06/04/18 Aspirin [Cameron] 325 mg PO BID 06/04/18 06/04/18 Ibuprofen [Motrin] 600 mg PO Q6HR PRN #15 tablet 06/05/18 - Allergies Allergies/Adverse Reactions: Allergies Allergy/AdvReac Type Severity Reaction Status Date / Time No Known Drug Allergies Allergy Verified 11/22/22 13:50 - Social History Does the pt smoke?: No Smoking Status: Never smoker Does the pt drink ETOH?: Yes Does the pt have substance abuse?: No - Immunizations Immunizations are current?: Yes - POLST Patient has POLST: Yes POLST Status: Full Code PD ED PE NORMAL - General General: Alert and oriented X 3, No acute distress, Well developed/nourished - HEENT HEENT: Atraumatic - Neck Neck: Supple, no meningeal sign - Cardiac Cardiac: RRR - Respiratory Respiratory: No respiratory distress, Clear bilaterally - Abdomen Abdomen: Normal bowel sounds, Soft, Non distended, Other (Left lower quadrant tenderness to palpation) - Rectal Rectal: Other (Chaperoned by Stephanie, soft stool in rectum, no impaction) - Neuro Neuro: Normal speech Results - Vitals Vitals: Vital Signs - 24 hr 11/22/22 11/22/22 11/22/22 13:40 13:49 19:45 Temperature 36.9 C 36.9 C 37.1 C Heart Rate 91 91 86 Respiratory 16 16 13 Rate Blood Pressure 125/74 125/74 130/53 L O2 Saturation 100 100 100 Oxygen O2 Source Room air - Labs Labs: Laboratory Tests 11/22/22 11/22/22 14:09 14:09 WBC 12.6 H RBC 2.98 L Hgb 9.5 L Hct 29.3 L MCV 98.3 H MCH 31.9 H MCHC 32.4 RDW 15.0 Plt Count 199 MPV 9.3 Neut # (Auto) 10.4 H Lymph # (Auto) 0.8 L [place] # (Auto) 0.9 Eos # (Auto) 0.2 Baso # (Auto) 0.0 Absolute Nucleated RBC 0.00 Nucleated RBC % 0.0 Sodium 132 L Potassium 4.2 Chloride 96 L Carbon Dioxide 23 Anion Gap 13.0 BUN 50 H Creatinine 1.6 H Estimated GFR (MDRD) 41 L Glucose 158 H Calcium 8.7 Total Bilirubin 1.2 H AST 28 ALT 26 Alkaline Phosphatase 64 Total Protein 6.0 L Albumin 2.7 L Globulin 3.3 Albumin/Globulin Ratio 0.8 L Lipase 41 PD Medical Decision Making - ED course Complexity details: reviewed results, re-evaluated patient, d/w patient ED course: Pt with recent hip surgery presenting for evaluation of constipation. Outside records reviewed. Mild LLQ tenderness so labs and imaging obtained which I reviewed. Hemoglobin and Cr better than prior from outside hospital. CT reviewed and shows stool in rectum. Pt given enema with good output. Feeling better here and abdominal exam on recheck appears benign. No signs of intraabdominal infection. Pt to be transferred back to [facility] where he is rehabing. Departure - Departure Disposition: 01 Home, Self Care Clinical Impression: Constipation Condition: Stable Instructions: ED Constipation Comments: You were treated for constipation. You did receive an enema. On exam the stool in your rectum is very soft and you have had stool output with the enema.Please continue to stay hydrated. Please continue with your stool regiment To keep your stool soft. I would not recommend any more enemas at this time. If you have any worsening symptoms please consider return to the emergency department. Discharge Date/Time: 11/22/22 19:47
[2022-11-22] MEDS ORDERED: iohexoL-300 100 ML VIAL IVP ONE (15:40)
--- NOTE | 2022-11-22 16:17 | CT Report ---
PROCEDURE: ABDOMEN/PELVIS W INDICATIONS: LLQ pain CONTRAST: 100mL Omni 300 TECHNIQUE: After the administration of intravenous contrast, 5 mm thick sections acquired from the diaphragms to the symphysis. 5 mm thick coronal and sagittal reformats were acquired. For radiation dose reducti on, the following was used: automated exposure control, adjustment of mA and/or kV according to anand ent size. COMPARISON: 04/26/2022 FINDINGS: Image quality: Excellent. ABDOMEN: Lung bases: Lung bases are clear. Heart size is normal. Severe coronary artery calcifications. Solid organs: Liver and spleen are normal in size and enhancement. Gallbladder is unremarkable with out calcified gallstones. Biliary system is non dilated. Pancreas enhances normally. No adrenal no dules. Kidneys demonstrate normal size and enhancement, without hydronephrosis. Peritoneum and bowel: Bowel loops demonstrate normal wall thickness and caliber. No free fluid or a ir. There are diverticuli. Colon is predominantly filled with fluid, possibly representing gastroent eritis. Nodes and vessels: No retroperitoneal or mesenteric adenopathy by size criteria. Aorta and inferior vena cava are normal in size. Miscellaneous: No ventral hernias. PELVIS: Genitourinary: A Almodovar catheter decompresses the bladder. The prostate is enlarged. Miscellaneous: Fat-containing right inguinal hernia. No inguinal adenopathy. Bones: No suspicious bony lesions. No vertebral body compression fractures. Total left hip arthrop lasty. IMPRESSION: 1. Fluid-filled colon suggests possible gastroenteritis. 2. Enlarged prostate, bladder decompressed by Almodovar. 3. Severe coronary artery calcifications. 4. Fat-containing right inguinal hernia. Reviewed by: Geo Gongora MD on 11/22/2022 4:16 PM PST Approved by: Geo Gongora MD on 11/22/2022 4:16 PM PST Station ID: [id number]
[2022-11-22 19:48] VITALS: BP 130/53
== END 2022-11-22 19:47 | disposition home or self-care (01) ==
LOC: EDUNIT# → ED 13:37
DX: K59.00 Constipation, unspecified (principal); E11.9 Type 2 diabetes mellitus without complications; Z79.84 Long term (current) use of oral hypoglycemic drugs; I10 Essential (primary) hypertension
CPT/HCPCS: 36415; 74177; 80053; 83690; 85025; 99283; 99284; Q9967

== ENCOUNTER 2022-11-22 19:56 | Outpatient (CLI) | payer MEDICARE, OTHER | END 2022-11-22 19:57 | LOC: EMS 19:56 | PROVIDERS: ATTEND Emergency Medicine | DX: K59.00 Constipation, unspecified (principal); S72.002D Fracture of unspecified part of neck of left femur, subsequent encounter for closed fracture with routine healing; Z98.890 Other specified postprocedural states | CPT/HCPCS: A0425; A0428 ==

== ENCOUNTER 2023-01-25 10:05 | Outpatient (CLI) | payer MEDICARE, OTHER ==
[2023-01-25 14:50] LABS: BASOPHILS # (AUTO) 0.1 10^3/uL (0.0-0.1); BASOPHILS % (AUTO) 0.5 %; EOSINOPHILS # (AUTO) 0.3 10^3/uL (0.0-0.7); HCT - HEMATOCRIT 30.1 % (42.0-52.0); HGB - HEMOGLOBIN 9.2 g/dL (14.0-18.0); LYMPHOCYTES # (AUTO) 2.1 10^3/uL (1.5-3.5); LYMPHOCYTES % (AUTO) 15.4 %; MEAN CORPUSCULAR HEMOGLOBIN 31.7 pg (27.0-31.0); MEAN CORPUSCULAR HGB CONC 30.6 g/dL (32.0-36.0); MEAN CORPUSCULAR VOLUME 103.8 fL (80.0-94.0); MEAN PLATELET VOLUME 10.6 fL (7.4-11.4); MONOCYTES # (AUTO) 0.9 10^3/uL (0.0-1.0); MONOCYTES % (AUTO) 6.6 %; NEUTROPHILS # (AUTO) 10.3 10^3/uL (1.5-6.6); NEUTROPHILS % (AUTO) 74.3 %; PLT - PLATELET COUNT 196 10^3/uL (130-450); RED CELL DISTRIBUTION WIDTH 18.2 % (12.0-15.0); WHITE BLOOD COUNT 13.8 x10^3/uL (4.8-10.8)
[2023-01-25 15:13] LABS: CREATININE 1.9 mg/dL (0.6-1.2); POTASSIUM 5.2 mmol/L (3.5-5.0)
== END 2023-01-25 10:06 | disposition home or self-care (01) ==
LOC: LAB.S 10:05
PROVIDERS: ATTEND Registered Nurse
DX: D64.9 Anemia, unspecified (principal); N18.9 Chronic kidney disease, unspecified
CPT/HCPCS: 36415; 80048; 85025

== ENCOUNTER 2023-02-07 16:27 | Outpatient (CLI) | payer MEDICARE, OTHER ==
--- NOTE | 2023-02-07 16:54 | XRAY Report ---
PROCEDURE: Chest 2 View X-Ray INDICATIONS: DYSPNEA ON EXERTION TECHNIQUE: 2 views of the chest were acquired. COMPARISON: 10/25/2021 FINDINGS: Surgical changes and devices: None. Lungs and pleura: Lung volumes are low. Mild interstitial prominence versus vascular crowding. Simil ar prominence of the right hilum. Suspected pleural thickening. Mediastinum: Heart size is at the upper limit of normal. Rightward curvature of the trachea, probabl y present previously. Bones and chest wall: No suspicious bony lesions. Overlying soft tissues appear unremarkable. IMPRESSION: Low lung volumes, limiting evaluation. Diffusely prominent interstitium, possibly mild edema versus a typical infection in the setting of the dyspnea on exertion. Consider future imaging surveillance to assess for resolution. Reviewed by: Jose Paredes MD on 02/07/2023 4:53 PM PDT Approved by: Jose Paredes MD on 02/07/2023 4:53 PM PDT Station ID: [id number]
== END 2023-02-07 23:59 | disposition home or self-care (01) ==
LOC: DI.S 16:27
PROVIDERS: ATTEND Internal Medicine
DX: R06.09 Other forms of dyspnea (principal)

== ENCOUNTER 2023-02-14 13:45 | Outpatient (CLI) | payer MEDICARE, OTHER ==
[2023-02-14 20:13] LABS: BASOPHILS # (AUTO) 0.1 10^3/uL (0.0-0.1); BASOPHILS % (AUTO) 0.5 %; EOSINOPHILS # (AUTO) 0.2 10^3/uL (0.0-0.7); EOSINOPHILS % (AUTO) 1.7 %; HCT - HEMATOCRIT 30.1 % (42.0-52.0); HGB - HEMOGLOBIN 8.9 g/dL (14.0-18.0); LYMPHOCYTES # (AUTO) 1.3 10^3/uL (1.5-3.5); LYMPHOCYTES % (AUTO) 11.4 %; MEAN CORPUSCULAR HEMOGLOBIN 31.1 pg (27.0-31.0); MEAN CORPUSCULAR HGB CONC 29.6 g/dL (32.0-36.0); MEAN CORPUSCULAR VOLUME 105.2 fL (80.0-94.0); MEAN PLATELET VOLUME 10.7 fL (7.4-11.4); MONOCYTES # (AUTO) 0.6 10^3/uL (0.0-1.0); MONOCYTES % (AUTO) 5.8 %; NEUTROPHILS # (AUTO) 8.8 10^3/uL (1.5-6.6); NEUTROPHILS % (AUTO) 79.9 %; PLT - PLATELET COUNT 188 10^3/uL (130-450); RED BLOOD COUNT 2.86 10^6/uL (4.70-6.10); RED CELL DISTRIBUTION WIDTH 18.4 % (12.0-15.0); WHITE BLOOD COUNT 11.1 x10^3/uL (4.8-10.8)
[2023-02-14 20:38] LABS: ALBUMIN 3.5 g/dL (3.2-5.5); ALBUMIN/GLOBULIN RATIO 1.2 (1.0-2.2); BILIRUBIN,TOTAL 0.7 mg/dL (0.2-1.0); CALCIUM 8.9 mg/dL (8.5-10.3); CREATININE 1.6 mg/dL (0.6-1.2); POTASSIUM 4.5 mmol/L (3.5-5.0); TOTAL PROTEIN 6.4 g/dL (6.7-8.2)
[2023-02-14 20:44] LABS: THYROID STIMULATING HORMONE 4.11 uIU/mL (0.34-5.60)
[2023-02-14 20:54] LABS: FOLATE 8.69 ng/mL (5.90 - >24.8)
[2023-02-14 21:09] LABS: ESTIMATED AVERAGE GLUCOSE 131 mg/dL (70-100); HEMOGLOBIN A1c% 6.2 % (4.27-6.07)
== END 2023-02-14 13:46 | disposition home or self-care (01) ==
LOC: LAB.S 13:45
PROVIDERS: ATTEND Internal Medicine
DX: I48.20 Chronic atrial fibrillation, unspecified (principal); D64.9 Anemia, unspecified; R60.9 Edema, unspecified; D75.89 Other specified diseases of blood and blood-forming organs; E11.9 Type 2 diabetes mellitus without complications; R06.09 Other forms of dyspnea
CPT/HCPCS: 36415; 80053; 82607; 82746; 83036; 83880; 84443; 85025

== ENCOUNTER → 2023-02-27 16:53 | Outpatient (CLI) | payer MEDICARE, OTHER ==
--- NOTE | 2023-02-27 17:08 | XRAY Report ---
PROCEDURE: Hip 2 View LT INDICATIONS: LEFT HIP PAIN TECHNIQUE: 4 views of the hip were acquired. COMPARISON: CT of abdomen and pelvis dated 11/22/2022 FINDINGS: Bones: Patient is status post prior left total hip arthroplasty and revision. Acute appearing obliqu e fracture in proximal femoral shaft adjacent to femoral prosthesis is seen with slight lateral displ acement at fracture site. Soft tissues: No suspicious soft tissue calcifications or masses. IMPRESSION: Prior left total hip arthroplasty. Acute appearing periprosthetic fracture involving proximal left fe moral shaft as above. Reviewed by: Brady Romero MD on 02/27/2023 4:07 PM SABINO Approved by: Brady Romero MD on 02/27/2023 4:07 PM AKDT Station ID: [id number]
== END | disposition home or self-care (01) ==
LOC: DI.WOS 16:53
PROVIDERS: ATTEND Orthopaedic Surgery
DX: M97.02XA Periprosthetic fracture around internal prosthetic left hip joint, initial encounter (principal)

== ENCOUNTER 2023-03-01 08:00 | Outpatient (CLI) | payer MEDICARE, OTHER ==
[2023-03-01 20:11] LABS: ALBUMIN 3.7 g/dL (3.2-5.5); ALBUMIN/GLOBULIN RATIO 1.2 (1.0-2.2); ALKALINE PHOSPHATASE 85 IU/L (42-121); ALT ALANINE AMINOTRANSFERASE < 10 IU/L (10-60); AST ASPARTATE AMINOTRANSFERASE 13 IU/L (10-42); BILIRUBIN,TOTAL 0.7 mg/dL (0.2-1.0); BUN - BLOOD UREA NITROGEN 50 mg/dL (6-20); CALCIUM 8.7 mg/dL (8.5-10.3); CARBON DIOXIDE - CO2 23 mmol/L (21-32); CHLORIDE 103 mmol/L (101-111); GFR - MDRD 32 (>89); GLUCOSE 207 mg/dL (70-100); POTASSIUM 4.7 mmol/L (3.5-5.0); SODIUM 137 mmol/L (135-145); TOTAL PROTEIN 6.7 g/dL (6.7-8.2)
== END 2023-03-01 23:59 | disposition home or self-care (01) ==
LOC: LAB.S 08:00
PROVIDERS: ATTEND Nurse Practitioner
DX: I48.91 Unspecified atrial fibrillation (principal); N18.30 Chronic kidney disease, stage 3 unspecified; R60.9 Edema, unspecified; I50.9 Heart failure, unspecified
CPT/HCPCS: 36415; 80053; 83880

== ENCOUNTER 2023-03-02 12:02 | Emergency (ER) | payer MEDICARE, OTHER ==
--- NOTE | 2023-03-02 12:47 | ED Physician Documentation ---
PD HPI DYSPNEA - Stated complaint Stated Complaint: SOA - Chief complaint Chief Complaint: Cardiac - History obtained from History obtained from: Patient - Additional information Additional information: 87-year-old gentleman with history of atrial fibrillation on Eliquis presents with worsening exertional dyspnea over the last several weeks. It is at the point where if he goes to the bathroom and sits back down it takes him about 5 to 8 minutes to recover. He notes pedal edema with this. He feels like it started after hip surgery a couple of months ago. He denies chest pain. He does note dark and tarry stools with this. Review of the chart shows worsening macrocytic anemia with hemoglobin 2 weeks ago being 8.9. He has an elevated BNP yesterday at 1234, that was up from 571 about 2 weeks ago as well. He has chronic prerenal azotemia, his creatinine yesterday was 2.0, usually it looks like its in the high ones. He had an echocardiogram 7 days ago demonstrating A- fib with an EF of 65-70, moderate RV enlargement, mild AR, mild to moderate MR, mild TR. PD PAST MEDICAL HISTORY - Past Medical History Cardiovascular: Hypertension, High cholesterol Respiratory: None Endocrine/Autoimmune: Type 2 diabetes GI: GERD : Other Psych: None Musculoskeletal: Osteoarthritis Derm: None - Past Surgical History Past Surgical History: Yes General: Appendectomy Ortho: Hip replacement HEENT: Cataracts - Present Medications Home Medications: Ambulatory Orders Medication Instructions Recorded Confirmed Felodipine [Felodipine ER] 10 mg PO DAILY 06/25/17 03/02/23 Metoprolol Succinate 50 mg PO DAILY 06/25/17 03/02/23 allopurinoL [Allopurinol] 300 mg PO DAILY 06/25/17 03/02/23 Acetaminophen 1,000 mg PO BID 06/04/18 03/02/23 Ibuprofen [Motrin] 600 mg PO Q6HR PRN #15 tablet 06/05/18 03/02/23 Apixaban [Eliquis] 2.5 mg PO BID 03/02/23 03/02/23 Furosemide [Lasix] 20 mg PO DAILY 03/02/23 03/02/23 Losartan Potassium 25 mg PO DAILY 03/02/23 03/02/23 Omeprazole Magnesium 20 mg PO DAILY 03/02/23 03/02/23 - Allergies Allergies/Adverse Reactions: Allergies Allergy/AdvReac Type Severity Reaction Status Date / Time No Known Drug Allergies Allergy Verified 03/02/23 12:22 - Social History Does the pt smoke?: No Smoking Status: Never smoker Does the pt drink ETOH?: Yes Does the pt have substance abuse?: No - Immunizations Immunizations are current?: Yes - POLST Patient has POLST: Yes POLST Status: Full Code PD ED PE NORMAL - Vitals Vital signs reviewed: Yes - General General: Alert and oriented X 3, No acute distress - HEENT HEENT: PERRL, EOMI - Neck Neck: Supple, no meningeal sign, No bony TTP - Cardiac Cardiac: RRR, No murmur - Respiratory Respiratory: Clear bilaterally, Other (He appears tachypneic and labored at rest.) - Abdomen Abdomen: Normal bowel sounds, Soft, Non tender - Rectal Rectal: Other (Some external hemorrhoids which were not bleeding. Brown stool in the vault sent for Guaiac) - Derm Derm: Normal color, Warm and dry - Extremities Extremities: Other (4+ pitting pedal edema that goes above the knees, symmetric) - Neuro Neuro: Alert and oriented X 3, Normal speech Results - Vitals Vitals: Vital Signs - 24 hr 03/02/23 03/02/23 03/02/23 12:18 12:52 13:22 Temperature 36.4 C L Heart Rate 55 L 63 58 L Respiratory 32 H 16 24 Rate Blood Pressure 110/48 L 140/60 H 134/59 H O2 Saturation 100 95 93 03/02/23 03/02/23 03/02/23 13:52 14:00 14:14 Temperature Heart Rate 59 L 64 Respiratory 25 H 22 Rate Blood Pressure 138/72 H 138/72 H O2 Saturation 93 94 92 03/02/23 03/02/23 03/02/23 14:30 15:18 16:04 Temperature Heart Rate 67 69 65 Respiratory 23 21 23 Rate Blood Pressure 144/71 H 135/71 H 158/83 H O2 Saturation 97 97 98 Oxygen O2 Source Room air - EKG (time done) 1226 EKG releavant findings:: EKG personally interpreted by author of this note. Relevant findings are: Rate: Rate (enter#) (56) Rhythm: NSR (w pac) [place]: Normal Intervals: Other (Short [place] interval) Ischemia: Q waves (Inferior). No: ST elevation c/w ischemia, ST depression Computer interpretation: Agree with computer - Labs Labs: Microbiology 03/02/23 12:42 Occult Blood - Final Stool Laboratory Tests 03/02/23 03/02/23 03/02/23 13:00 13:00 13:00 WBC 9.3 RBC 3.07 L Hgb 9.6 L Hct 31.3 L MCV 102.0 H MCH 31.3 H MCHC 30.7 L RDW 17.6 H Plt Count 123 L MPV 11.4 Neut # (Auto) 7.5 H Lymph # (Auto) 1.0 L [place] # (Auto) 0.5 Eos # (Auto) 0.2 Baso # (Auto) 0.1 Absolute Nucleated RBC 0.00 Nucleated RBC % 0.0 Sodium 136 Potassium 4.3 Chloride 100 L Carbon Dioxide 23 Anion Gap 13.0 BUN 48 H Creatinine 2.0 H Estimated GFR (MDRD) 32 L Glucose 171 H Calcium 8.8 Total Bilirubin 0.8 AST 14 ALT 11 Alkaline Phosphatase 98 Troponin I High Sens B-Natriuretic Peptide Total Protein 6.9 Albumin 3.8 Globulin 3.1 Albumin/Globulin Ratio 1.2 SARS-CoV-2 (PCR) Blood Type O POSITIVE Blood Type Recheck Antibody Screen NEGATIVE 03/02/23 03/02/23 03/02/23 13:00 13:00 13:24 WBC RBC Hgb Hct MCV MCH MCHC RDW Plt Count MPV Neut # (Auto) Lymph # (Auto) [place] # (Auto) Eos # (Auto) Baso # (Auto) Absolute Nucleated RBC Nucleated RBC % Sodium Potassium Chloride Carbon Dioxide Anion Gap BUN Creatinine Estimated GFR (MDRD) Glucose Calcium Total Bilirubin AST ALT Alkaline Phosphatase Troponin I High Sens 37.4 H* B-Natriuretic Peptide 1305 H Total Protein Albumin Globulin Albumin/Globulin Ratio SARS-CoV-2 (PCR) Blood Type Blood Type Recheck O POSITIVE Antibody Screen 03/02/23 15:15 WBC RBC Hgb Hct MCV MCH MCHC RDW Plt Count MPV Neut # (Auto) Lymph # (Auto) [place] # (Auto) Eos # (Auto) Baso # (Auto) Absolute Nucleated RBC Nucleated RBC % Sodium Potassium Chloride Carbon Dioxide Anion Gap BUN Creatinine Estimated GFR (MDRD) Glucose Calcium Total Bilirubin AST ALT Alkaline Phosphatase Troponin I High Sens B-Natriuretic Peptide Total Protein Albumin Globulin Albumin/Globulin Ratio SARS-CoV-2 (PCR) NOT DETECTED Blood Type Blood Type Recheck Antibody Screen - Rads (name of study) Single view chest x-ray demonstrates trace right pleural effusion and mild edema Relevant Findings:: Final report received, EMP independent interpretation of test PD Medical Decision Making - ED course ED course: 87-year-old gentleman who has significant CHF with exertional dyspnea and 4+ pedal edema. He is tachypneic at rest with pursed lip breathing. Recent work- up reviewed as documented in the HPI. He is anemic today but guaiac negative and slightly better indices than prior. He still has mild acute on chronic AMY and an elevated troponin and BNP. He was administered 40 mg of Lasix IV. Discussed with Dr. Wade and patient and . 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 I was notified quickly by our health embossing unit operator that [facility] was completely full and could not even wait list this gentleman. Asked the health embossing unit operator to call around for cardiology capable facility. Accepted to [facility] by Dr. Horacio Hardwick at 1620 Departure - Departure Disposition: 02 Transfer Acute Care Hosp Clinical Impression: CHF (congestive heart failure), Elevated troponin I level Condition: Serious
--- NOTE | 2023-03-02 13:06 | XRAY Report ---
PROCEDURE: Chest 1 View X-Ray INDICATIONS: dyspnea TECHNIQUE: One view of the chest was acquired. COMPARISON: None. FINDINGS: Surgical changes and devices: None. Lungs and pleura: Trace right pleural effusion. Increased pulmonary markings. Mediastinum: Mediastinal contours appear normal. Heart size is normal. Bones and chest wall: No suspicious bony lesions. Overlying soft tissues appear unremarkable. IMPRESSION: Trace right pleural effusion. Mild interstitial edema. Reviewed by: Kye Workman on 03/02/2023 1:04 PM PDT Approved by: Kye Workman on 03/02/2023 1:04 PM PDT Station ID: [id number]
[2023-03-02 13:08] LABS: BASOPHILS # (AUTO) 0.1 10^3/uL (0.0-0.1); BASOPHILS % (AUTO) 0.6 %; EOSINOPHILS # (AUTO) 0.2 10^3/uL (0.0-0.7); HCT - HEMATOCRIT 31.3 % (42.0-52.0); HGB - HEMOGLOBIN 9.6 g/dL (14.0-18.0); LYMPHOCYTES % (AUTO) 10.9 %; MEAN CORPUSCULAR HEMOGLOBIN 31.3 pg (27.0-31.0); MEAN CORPUSCULAR HGB CONC 30.7 g/dL (32.0-36.0); MEAN PLATELET VOLUME 11.4 fL (7.4-11.4); MONOCYTES # (AUTO) 0.5 10^3/uL (0.0-1.0); MONOCYTES % (AUTO) 5.8 %; NEUTROPHILS # (AUTO) 7.5 10^3/uL (1.5-6.6); NEUTROPHILS % (AUTO) 80.2 %; PLT - PLATELET COUNT 123 10^3/uL (130-450); RED BLOOD COUNT 3.07 10^6/uL (4.70-6.10); RED CELL DISTRIBUTION WIDTH 17.6 % (12.0-15.0); WHITE BLOOD COUNT 9.3 x10^3/uL (4.8-10.8)
[2023-03-02 13:21] LABS: ALBUMIN 3.8 g/dL (3.2-5.5); ALBUMIN/GLOBULIN RATIO 1.2 (1.0-2.2); BILIRUBIN,TOTAL 0.8 mg/dL (0.2-1.0); CALCIUM 8.8 mg/dL (8.5-10.3); POTASSIUM 4.3 mmol/L (3.5-5.0); TOTAL PROTEIN 6.9 g/dL (6.7-8.2)
[2023-03-02] MEDS ORDERED: FUROSEMIDE 40 MG/4 ML VIAL IVP STA (13:38)
[2023-03-02 17:02] VITALS: BP 125/69
== END 2023-03-02 17:57 | disposition short-term general hospital (02) ==
LOC: ED 12:02
DX: I50.9 Heart failure, unspecified (principal); D64.9 Anemia, unspecified; N17.9 Acute kidney failure, unspecified; R79.89 Other specified abnormal findings of blood chemistry; Z20.822 Contact with and (suspected) exposure to COVID-19
CPT/HCPCS: 36415; 80053; 82272; 83880; 84484; 85025; 86850; 86900; 86901; 93005; 96374; 99285

== ENCOUNTER 2023-03-02 17:32 | Outpatient (CLI) | payer MEDICARE, OTHER | END 2023-03-02 17:33 | disposition short-term general hospital (02) | LOC: EMS 17:32 | PROVIDERS: ATTEND Emergency Medicine | DX: I50.9 Heart failure, unspecified (principal); R77.8 Other specified abnormalities of plasma proteins | CPT/HCPCS: A0425; A0426 ==

== ENCOUNTER 2023-03-27 13:57 | Outpatient (CLI) | payer MEDICARE, OTHER ==
[2023-03-27 19:30] LABS: CALCIUM 9.2 mg/dL (8.5-10.3); POTASSIUM 5.4 mmol/L (3.5-5.0)
== END 2023-03-27 13:58 | disposition home or self-care (01) ==
LOC: LAB.S 13:57
PROVIDERS: ATTEND Nurse Practitioner
DX: I50.33 Acute on chronic diastolic (congestive) heart failure (principal); I48.0 Paroxysmal atrial fibrillation
CPT/HCPCS: 36415; 80048

== ENCOUNTER 2023-04-26 12:43 | Outpatient (CLI) | payer MEDICARE, OTHER ==
[2023-04-26 15:38] LABS: CALCIUM 9.2 mg/dL (8.5-10.3); POTASSIUM 4.1 mmol/L (3.5-5.0)
== END 2023-04-26 12:44 | disposition home or self-care (01) ==
LOC: LAB.S 12:43
PROVIDERS: ATTEND Internal Medicine
DX: I50.33 Acute on chronic diastolic (congestive) heart failure (principal)
CPT/HCPCS: 36415; 80048

== ENCOUNTER 2023-06-05 15:47 | Emergency (ER) | payer MEDICARE, OTHER ==
--- NOTE | 2023-06-05 16:15 | ED Physician Documentation ---
PD HPI DYSPNEA - Stated complaint Stated Complaint: CHEST PX,SOA,DIZZY - Chief complaint Chief Complaint: Cardiac - History obtained from History obtained from: Patient - Additional information Additional information: 87-year-old gentleman with history of congestive heart failure. Admitted to [facility] in February of this year for CHF and anasarca as well as elevated troponin. He states they ruled him out for heart attack, and he was doing very well after diuresis. Over the last 4 days or so he is developed increasing dyspnea, orthopnea, and lightheadedness. He had a 15-minute episode of chest pressure today at 3 PM. 2 weeks ago he fell in the bathroom and hit the handle in the shower. His very large bruising over the left flank. Did not seek medical attention at the time. PD PAST MEDICAL HISTORY - Past Medical History Cardiovascular: Hypertension, High cholesterol Respiratory: None Endocrine/Autoimmune: Type 2 diabetes GI: GERD : Other Psych: None Musculoskeletal: Osteoarthritis Derm: None - Past Surgical History Past Surgical History: Yes General: Appendectomy Ortho: Hip replacement HEENT: Cataracts - Present Medications Home Medications: Ambulatory Orders Medication Instructions Recorded Confirmed Felodipine [Felodipine ER] 10 mg PO DAILY 06/25/17 03/02/23 Metoprolol Succinate 50 mg PO DAILY 06/25/17 03/02/23 allopurinoL [Allopurinol] 300 mg PO DAILY 06/25/17 03/02/23 Acetaminophen 1,000 mg PO BID 06/04/18 03/02/23 Ibuprofen [Motrin] 600 mg PO Q6HR PRN #15 tablet 06/05/18 03/02/23 Apixaban [Eliquis] 2.5 mg PO BID 03/02/23 03/02/23 Furosemide [Lasix] 20 mg PO DAILY 03/02/23 03/02/23 Losartan Potassium 25 mg PO DAILY 03/02/23 03/02/23 Omeprazole Magnesium 20 mg PO DAILY 03/02/23 03/02/23 Torsemide 1 - 3 tab PO DAILY #90 tablet 06/05/23 - Allergies Allergies/Adverse Reactions: Allergies Allergy/AdvReac Type Severity Reaction Status Date / Time No Known Drug Allergies Allergy Verified 06/05/23 15:51 - Social History Does the pt smoke?: No Smoking Status: Never smoker Does the pt drink ETOH?: Yes Does the pt have substance abuse?: No - Immunizations Immunizations are current?: Yes - POLST Patient has POLST: Yes POLST Status: Full Code PD ED PE NORMAL - Vitals Vital signs reviewed: Yes - General General: Alert and oriented X 3, No acute distress - HEENT HEENT: PERRL, EOMI - Neck Neck: Supple, no meningeal sign, No bony TTP - Cardiac Cardiac: RRR, No murmur - Respiratory Respiratory: No respiratory distress, Clear bilaterally - Abdomen Abdomen: Non tender, Other (Significant bruising over the left flank and lateral abdomen) - Back Back: No CVA TTP, No spinal TTP - Derm Derm: Normal color, Warm and dry - Extremities Extremities: Other (2+ pitting pedal edema to upper calf, symmetric) - Neuro Neuro: Alert and oriented X 3, Normal speech Results - Vitals Vitals: Vital Signs - 24 hr 06/05/23 06/05/23 06/05/23 15:51 16:26 16:56 Temperature 36.5 C Heart Rate 60 48 L 48 L Respiratory 18 15 15 Rate Blood Pressure 126/51 L 111/55 L O2 Saturation 99 96 06/05/23 17:00 Temperature Heart Rate 48 L Respiratory Rate Blood Pressure O2 Saturation Oxygen O2 Source Room air - EKG (time done) 1548 EKG releavant findings:: EKG personally interpreted by author of this note. Relevant findings are: Rate: Rate (enter#) (49) Rhythm: Sinus bradycardia [place]: LAD Intervals: Normal [place] QRS: Normal Ischemia: Non specific changes Compare to prior EKG: Changed from prior EKG (No ST-T changes from March 02, 2023.) - Labs Labs: Laboratory Tests 06/05/23 06/05/23 06/05/23 16:16 16:16 16:16 WBC 12.3 H RBC 2.79 L Hgb 9.1 L Hct 28.9 L MCV 103.6 H MCH 32.6 H MCHC 31.5 L RDW 17.6 H Plt Count 132 MPV 11.8 H Neut # (Auto) 10.3 H Lymph # (Auto) 0.9 L [place] # (Auto) 1.0 Eos # (Auto) 0.0 Baso # (Auto) 0.1 Absolute Nucleated RBC 0.00 Nucleated RBC % 0.0 Sodium 133 L Potassium 4.6 H Chloride 100 L Carbon Dioxide 23 Anion Gap 10.0 BUN 51 H Creatinine 1.9 H Estimated GFR (MDRD) 34 L Glucose 173 H Calcium 9.5 Total Bilirubin 1.0 AST 10 ALT 10 Alkaline Phosphatase 77 Troponin I High Sens 43.7 H* B-Natriuretic Peptide 1437 H Total Protein 6.8 Albumin 3.9 Globulin 2.9 Albumin/Globulin Ratio 1.3 Lipase 13 - Rads (name of study) 1v cxr Relevant Findings:: Final report received, EMP independent interpretation of test PD Medical Decision Making - ED course ED course: He presents with symptomatic heart failure. Of note later in the stay he noted that last week he was running low on his torsemide so instead of taking 40 mg a day he spread out by taking 20 prior. That was probably the inciting problem. His work-up here shows high BNP but with clear lungs on x-ray and clinically. His EKG is nonischemic. His troponin is slowly going up over time looking at prior labs, so he is probably has a chronic troponin leak. I discussed his case by phone with Dr. Cespedes, sail cutter at [facility] who is a partner with his sail cutter and she agrees that he can go back to his prior dose of torsemide in fact taking 60 mg a day until back to his dry weight. I confirm with the patient that he is weighing himself. She also confirmed that he was ruled out for a cardiac event by cardiac MRI on his prior admission. Departure - Departure Disposition: Home, Self Care Clinical Impression: Chest pain Qualifiers: Chest pain type: unspecified Qualified Code(s): R07.9 - Chest pain, unspecified Congestive heart failure Qualifiers: Heart failure type: unspecified Heart failure chronicity: acute on chronic Qualified Code(s): I50.9 - Heart failure, unspecified Condition: Good Record reviewed to determine appropriate education?: Yes Instructions: ED CHF General Prescriptions: Torsemide 1 - 3 tab PO DAILY #90 tablet Comments: Continue to weigh yourself daily. Until back to your baseline weight you can take 60 mg, 3 tablets of the torsemide daily. Anytime you gain 2 pounds in a day or 4 pounds in a week you should take an extra dose of torsemide until back to your baseline weight. Follow-up with Dr. Dodge, next available appointment. Return for new or worsening symptoms. Forms: PCP List
[2023-06-05] MEDS ORDERED: FUROSEMIDE 40 MG/4 ML VIAL IVP STA (16:22)
[2023-06-05 16:40] LABS: ALBUMIN 3.9 g/dL (3.2-5.5); ALBUMIN/GLOBULIN RATIO 1.3 (1.0-2.2); BASOPHILS # (AUTO) 0.1 10^3/uL (0.0-0.1); BASOPHILS % (AUTO) 0.4 %; CALCIUM 9.5 mg/dL (8.5-10.3); CREATININE 1.9 mg/dL (0.6-1.3); EOSINOPHILS % (AUTO) 0.2 %; HCT - HEMATOCRIT 28.9 % (42.0-52.0); HGB - HEMOGLOBIN 9.1 g/dL (14.0-18.0); LYMPHOCYTES # (AUTO) 0.9 10^3/uL (1.5-3.5); LYMPHOCYTES % (AUTO) 7.4 %; MEAN CORPUSCULAR HEMOGLOBIN 32.6 pg (27.0-31.0); MEAN CORPUSCULAR HGB CONC 31.5 g/dL (32.0-36.0); MEAN CORPUSCULAR VOLUME 103.6 fL (80.0-94.0); MEAN PLATELET VOLUME 11.8 fL (7.4-11.4); NEUTROPHILS # (AUTO) 10.3 10^3/uL (1.5-6.6); NEUTROPHILS % (AUTO) 83.4 %; PLT - PLATELET COUNT 132 10^3/uL (130-450); POTASSIUM 4.6 mmol/L (3.5-4.5); RED BLOOD COUNT 2.79 10^6/uL (4.70-6.10); RED CELL DISTRIBUTION WIDTH 17.6 % (12.0-15.0); TOTAL PROTEIN 6.8 g/dL (6.4-8.9); WHITE BLOOD COUNT 12.3 x10^3/uL (4.8-10.8)
--- NOTE | 2023-06-05 17:09 | XRAY Report ---
PROCEDURE: Chest 1 View X-Ray INDICATIONS: Chest pain TECHNIQUE: One view of the chest was acquired. COMPARISON: None. FINDINGS: Surgical changes and devices: None. Lungs and pleura: No pleural effusions or pneumothorax. Lungs are clear. Mediastinum: Mediastinal contours appear normal. Heart size is normal. Bones and chest wall: No suspicious bony lesions. Overlying soft tissues appear unremarkable. IMPRESSION: No acute cardiopulmonary process. Reviewed by: Kye Workman on 06/05/2023 5:08 PM PDT Approved by: Kye Workman on 06/05/2023 5:08 PM PDT Station ID: [id number]
[2023-06-05 17:13] LABS: TROPONIN I HIGH SENSITIVITY 43.7 ng/L (2.3-19.7)
[2023-06-05 18:25] VITALS: BP 109/59; O2SAT 100
== END 2023-06-05 18:37 | disposition home or self-care (01) ==
LOC: ED 15:47
DX: R07.9 Chest pain, unspecified (principal); I11.0 Hypertensive heart disease with heart failure; I50.9 Heart failure, unspecified; S30.1XXA Contusion of abdominal wall, initial encounter; W19.XXXA Unspecified fall, initial encounter; Y92.89 Other specified places as the place of occurrence of the external cause; E78.00 Pure hypercholesterolemia, unspecified; E11.9 Type 2 diabetes mellitus without complications; Z79.899 Other long term (current) drug therapy
CPT/HCPCS: 36415; 80053; 83690; 83880; 84484; 85025; 93005; 96374; 99284